=== PATIENT | female | born 1960 | race Caucasian/White ===

== ENCOUNTER 2020-03-27 17:26 | Emergency (ER) | payer BC ==
[~2020-03-27] VITALS: Ht 167.6 cm; Wt 43.0 kg
[2020-03-27] MEDS ORDERED: ketorolac trometh. 30mg/ml inj. IV ONE (17:45)
[2020-03-27] MEDS ORDERED: HYDR-3965 PO (18:19)
[2020-03-27 18:32] VITALS: BP 108/61
== END 2020-03-27 18:33 | disposition home or self-care (01) ==
LOC: ER 17:26
DX: S52.124A Nondisplaced fracture of head of right radius, initial encounter for closed fracture (principal); M79.631 Pain in right forearm; R42 Dizziness and giddiness; R11.0 Nausea; J44.9 Chronic obstructive pulmonary disease, unspecified; F17.200 Nicotine dependence, unspecified, uncomplicated; Z88.5 Allergy status to narcotic agent; Z79.899 Other long term (current) drug therapy; W18.39XA Other fall on same level, initial encounter; Y93.89 Activity, other specified; Y92.89 Other specified places as the place of occurrence of the external cause; Y99.8 Other external cause status
CPT/HCPCS: 73090; 73110; 96374; 99284; J1885

== ENCOUNTER 2021-06-07 02:16 | Inpatient (IN) | payer BC ==
[~2021-06-07] VITALS: Ht 165.1 cm; Wt 84.1 kg
[2021-06-07 03:07] LABS: EOSINOPHILS # (AUTO) 0.1 X10'3 (0-0.9); MEAN CORPUSCULAR HEMOGLOBIN 30.6 PG (27.0-31.0); MEAN PLATELET VOLUME 9.7 FL (7.4-10.4)
[2021-06-07 03:11] LABS: BASOPHILS # (AUTO) 0.1 X10'3 (0-0.2); BASOPHILS % (AUTO) 0.9 % (0-1); EOSINOPHILS % (AUTO) 1.3 % (0-6); HEMATOCRIT 42.9 % (35.0-45.0); HEMOGLOBIN 14.5 g/dl (12.0-16.0); LYMPHOCYTES # (AUTO) 1.9 X10'3 (1.1-4.8); LYMPHOCYTES % (AUTO) 22.3 % (21-51); MEAN CORPUSCULAR HGB CONC 33.7 g/dL (33.0-36.5); MEAN CORPUSCULAR VOLUME 90.7 FL (78-98); MONOCYTES # (AUTO) 1.3 X10'3 (0-0.9); MONOCYTES % (AUTO) 14.7 % (2-12); NEUTROPHILS # (AUTO) 5.2 X10'3 (1.8-7.7); NEUTROPHILS % (AUTO) 60.8 % (42-75); PLATELET COUNT 230 X10'3 (140-440); RED BLOOD COUNT 4.73 X10'6 (4.20-5.60); RED CELL DISTRIBUTION WIDTH 13.8 % (11.5-14.5); WHITE BLOOD COUNT 8.6 X10'3 (4.5-11.0)
[2021-06-07 03:26] LABS: ALBUMIN 3.2 G/DL (3.4-5.0); ANION GAP 9 (8-16); BLOOD UREA NITROGEN 19 MG/DL (7-18); BUN/CREATININE RATIO 22.9 (6.6-38.0); CALCIUM 8.6 MG/DL (8.5-10.1); CHLORIDE 104 MMOL/L (99-107); CREATININE 0.83 MG/DL (0.40-0.90); GLUCOSE 91 MG/DL (70-104); POTASSIUM 3.9 MMOL/L (3.5-5.1); SODIUM 141 MMOL/L (135-145); TOTAL CARBON DIOXIDE 27.9 MMOL/L (24-32); eGFR 70 ML/MIN
[2021-06-07] MEDS ORDERED: albuterol 2.5 MG/3 ML nebule NEB ONE (04:00)
[2021-06-07] MEDS ORDERED: dexamethasone sod phosphate 10mg/ml inj IV STA (04:23)
[2021-06-07] MEDS ORDERED: CefTRIAXone/D5W-Rocephin 1gm 50 ML IV ONE (06:30)
[2021-06-07] MEDS ORDERED: mag hydrox/Alum hydrox/simeth 30ml oral suspension PO PRN (08:00)
[2021-06-07] MEDS: docusate sod 100mg capsule PO SCH ×2 (08:00→20:00)
[2021-06-07] MEDS: enoxaparin 40mg/0.4ml syringe SUBCUT SCH (08:00)
[2021-06-07] MEDS ORDERED: ondansetron/PF 4mg/2ml inj IV PRN (08:00)
[2021-06-07] MEDS ORDERED: acetaminophen 325mg tablet PO PRN ×2 (08:00)
[2021-06-07] MEDS ORDERED: magnesium hydroxide 30ml (MOM) UD suspension PO PRN (08:00)
[2021-06-07] MEDS ORDERED: morphine 2 MG/ML inj. syringe IV PRN ×2 (08:00)
[2021-06-07] MEDS ORDERED: ipratropium/albuterol 3ml nebule NEB PRN (08:05)
[2021-06-07 08:51] LABS: ABG HCO3 26.3 mmol/L (22.0-26.0); ABG OXYGEN SATURATION 97.2 % (94-97); ABG PO2 (T) 91.1 mmHg (75.0-100.0); ALLEN'S TEST POSITIVE; FMetHb 0.1 % (0.0-1.5); FO2Hb 96.1 % (94-97); PATIENT TEMPERATURE 36.3; TOTAL HEMOGLOBIN 15.2 G/dl (12.0-16.0)
[2021-06-07] MEDS ORDERED: nicotine 21mg patch - 24 hr TD ONE (09:15)
[2021-06-07] MEDS ORDERED: ALBU18HF2 PO (09:44)
[2021-06-07] MEDS ORDERED: ALBU2.5V10 PO (09:44)
[2021-06-07] MEDS ORDERED: FLUT1BLS10 INH (09:44)
[2021-06-07] MEDS ORDERED: ipratropium/albuterol 3ml nebule ONE (12:20)
[2021-06-07] MEDS: methylPREDNISolone sod succ 125mg/2ml vial IV SCH ×2 (16:29→23:43)
--- NOTE | 2021-06-07 16:32 | NUR ---
Attempted to call for report from ER
--- NOTE | 2021-06-07 16:43 | NUR ---
Patient in room ED 1. I have received report from ADITI Alarcon RN and had the opportunity to ask questions and assume patient care.
[2021-06-07] MEDS ORDERED: ipratropium/albuterol 3ml nebule NEB SCH (17:00)
[2021-06-07 17:13] VITALS: BP 102/60
[2021-06-07] MEDS: ipratropium/albuterol 3ml nebule NEB PRN (17:19)
[2021-06-07 18:00] VITALS: BP 95/56
--- NOTE | 2021-06-07 18:20 | NUR ---
Patient in room MED 309. I have received report from Mary DAVE and had the opportunity to ask questions and assume patient care.
[2021-06-07] MEDS: ipratropium/albuterol 3ml nebule NEB SCH ×2 (20:11→23:55)
[2021-06-07 22:00] VITALS: BP 106/59
[2021-06-08 02:00] VITALS: BP 105/81
[2021-06-08] MEDS: ipratropium/albuterol 3ml nebule NEB SCH ×6 (03:07→23:14)
[2021-06-08 06:28] LABS: BASOPHILS % (AUTO) 0.1 % (0-1); EOSINOPHILS % (AUTO) 0 % (0-6); HEMATOCRIT 42.7 % (35.0-45.0); HEMOGLOBIN 14.5 g/dl (12.0-16.0); LYMPHOCYTES # (AUTO) 0.8 X10'3 (1.1-4.8); LYMPHOCYTES % (AUTO) 8.9 % (21-51); MEAN CORPUSCULAR HEMOGLOBIN 30.6 PG (27.0-31.0); MEAN CORPUSCULAR HGB CONC 33.9 g/dL (33.0-36.5); MEAN CORPUSCULAR VOLUME 90.2 FL (78-98); MONOCYTES # (AUTO) 0.2 X10'3 (0-0.9); MONOCYTES % (AUTO) 2.3 % (2-12); NEUTROPHILS # (AUTO) 7.9 X10'3 (1.8-7.7); NEUTROPHILS % (AUTO) 88.7 % (42-75); PLATELET COUNT 229 X10'3 (140-440); RED BLOOD COUNT 4.73 X10'6 (4.20-5.60); RED CELL DISTRIBUTION WIDTH 13.5 % (11.5-14.5); WHITE BLOOD COUNT 8.9 X10'3 (4.5-11.0)
--- NOTE | 2021-06-08 06:30 | NUR ---
Problems reprioritized. Patient report given, questions answered & plan of care reviewed with Otis DAVE.
--- NOTE | 2021-06-08 06:41 | NUR ---
patient complaining of shortness of breath, O2 sats 96% on 3L, paged RT for a breathing treatment.
[2021-06-08 06:49] LABS: ANION GAP 10 (8-16); BLOOD UREA NITROGEN 22 MG/DL (7-18); BUN/CREATININE RATIO 27.8 (6.6-38.0); CALCIUM 8.9 MG/DL (8.5-10.1); CHLORIDE 105 MMOL/L (99-107); CREATININE 0.79 MG/DL (0.40-0.90); GLUCOSE 138 MG/DL (70-104); POTASSIUM 4.3 MMOL/L (3.5-5.1); SODIUM 142 MMOL/L (135-145); TOTAL CARBON DIOXIDE 27.1 MMOL/L (24-32); eGFR 74 ML/MIN
[2021-06-08 07:00] VITALS: BP 118/62
[2021-06-08] MEDS: methylPREDNISolone sod succ 125mg/2ml vial IV SCH ×2 (07:42→16:07)
[2021-06-08] MEDS: docusate sod 100mg capsule PO SCH ×2 (07:42→20:39)
[2021-06-08] MEDS: enoxaparin 40mg/0.4ml syringe SUBCUT SCH (07:43)
[2021-06-08 11:00] VITALS: BP 119/83
[2021-06-08] MEDS ORDERED: guaiFENesin ER 600mg tablet PO ONE (11:30)
[2021-06-08 15:00] VITALS: BP 105/68
[2021-06-08 18:00] VITALS: BP 111/60
[2021-06-08] MEDS: guaiFENesin ER 600mg tablet PO SCH (20:39)
[2021-06-08 22:55] VITALS: BP 103/61
[2021-06-09] MEDS: methylPREDNISolone sod succ 125mg/2ml vial IV SCH ×3 (00:13→17:11)
[2021-06-09 02:00] VITALS: BP 113/69
[2021-06-09] MEDS: ipratropium/albuterol 3ml nebule NEB PRN (03:10)
[2021-06-09 05:51] LABS: BASOPHILS % (AUTO) 0.3 % (0-1); EOSINOPHILS % (AUTO) 0 % (0-6); HEMATOCRIT 45.2 % (35.0-45.0); HEMOGLOBIN 14.9 g/dl (12.0-16.0); LYMPHOCYTES # (AUTO) 0.7 X10'3 (1.1-4.8); MEAN CORPUSCULAR VOLUME 90.9 FL (78-98); MONOCYTES # (AUTO) 0.3 X10'3 (0-0.9); MONOCYTES % (AUTO) 2.5 % (2-12); NEUTROPHILS # (AUTO) 12.6 X10'3 (1.8-7.7); NEUTROPHILS % (AUTO) 92.2 % (42-75); PLATELET COUNT 241 X10'3 (140-440); RED BLOOD COUNT 4.97 X10'6 (4.20-5.60); WHITE BLOOD COUNT 13.7 X10'3 (4.5-11.0)
[2021-06-09 05:56] LABS: ANION GAP 6 (8-16); BLOOD UREA NITROGEN 23 MG/DL (7-18); BUN/CREATININE RATIO 27.7 (6.6-38.0); CHLORIDE 102 MMOL/L (99-107); CREATININE 0.83 MG/DL (0.40-0.90); GLUCOSE 151 MG/DL (70-104); POTASSIUM 4.2 MMOL/L (3.5-5.1); SODIUM 137 MMOL/L (135-145); eGFR 70 ML/MIN
--- NOTE | 2021-06-09 06:36 | NUR ---
Patient in room MED 309. I have received report from Sujey DAVE and had the opportunity to ask questions and assume patient care.
--- NOTE | 2021-06-09 06:59 | NUR ---
Paged RT MARY Palacios RN ext [phone]. RE: Merlyn Rodriguez. Patient is short of breath requesting for breathing treatment now. Thanks
[2021-06-09] MEDS: ipratropium/albuterol 3ml nebule NEB SCH ×4 (07:08→19:26)
[2021-06-09 07:11] VITALS: BP 111/55
[2021-06-09] MEDS: docusate sod 100mg capsule PO SCH ×2 (08:17→20:16)
[2021-06-09] MEDS: guaiFENesin ER 600mg tablet PO SCH ×2 (08:17→20:16)
[2021-06-09] MEDS: enoxaparin 40mg/0.4ml syringe SUBCUT SCH (08:18)
--- NOTE | 2021-06-09 08:45 | NUR ---
Patient reported to me that she did not feel confident about getting flu shot and pneumococcal vaccine today.
[2021-06-09] MEDS: nicotine 21mg patch - 24 hr TD SCH (10:10)
--- NOTE | 2021-06-09 10:42 | NUR ---
Paged Dr. Christopher PAGER ID: [phone] MESSAGE: MARY Palacios RN ext [phone]. RE: Michael,Andreina. Patient really wants to start Tessalon jayme she said Mucinex don't work for her and the cough triggering her anxiety
[2021-06-09] MEDS ORDERED: guaiFENesin/DM 10ml UD oral syrup PO PRN (10:45)
[2021-06-09] MEDS ORDERED: pneumococcal 23-VAL P-sac vacc 25 mcg/0.5ml vial IMVAC ONE (10:50)
[2021-06-09] MEDS ORDERED: FLU VACC QS2021-22(6MOS UP)/PF 60 MCG/0.5 ML SYRINGE IM ONE (10:55)
[2021-06-09 10:57] VITALS: BP 98/70
[2021-06-09] MEDS: azithromycin 250mg tablet PO SCH (11:09)
[2021-06-09 16:54] VITALS: BP 103/80
--- NOTE | 2021-06-09 17:38 | NUR ---
Paged Dr. Christopher PAGER ID: [phone] MESSAGE: MARY Palacios RN ext [phone]. Merlyn Rodriguez. Follow up page: Patient has been requesting Tessalon jayme for her cough.
[2021-06-09 18:00] VITALS: BP 108/72
--- NOTE | 2021-06-09 18:27 | NUR ---
Problems reprioritized. Patient report given, questions answered & plan of care reviewed with Prudence RN.
[2021-06-09] MEDS: benzonatate 100mg capsule PO PRN (20:16)
[2021-06-09 22:00] VITALS: BP 114/63
[2021-06-10] MEDS: methylPREDNISolone sod succ 125mg/2ml vial IV SCH ×2 (00:16→08:25)
[2021-06-10] MEDS: ipratropium/albuterol 3ml nebule NEB PRN ×2 (00:36→04:53)
[2021-06-10 03:00] VITALS: BP 108/72
[2021-06-10 06:09] LABS: BASOPHILS % (AUTO) 0.1 % (0-1); EOSINOPHILS % (AUTO) 0 % (0-6); HEMATOCRIT 42.7 % (35.0-45.0); HEMOGLOBIN 14.2 g/dl (12.0-16.0); LYMPHOCYTES # (AUTO) 0.7 X10'3 (1.1-4.8); LYMPHOCYTES % (AUTO) 5.8 % (21-51); MEAN CORPUSCULAR HEMOGLOBIN 30.1 PG (27.0-31.0); MEAN CORPUSCULAR HGB CONC 33.2 g/dL (33.0-36.5); MEAN CORPUSCULAR VOLUME 90.7 FL (78-98); MEAN PLATELET VOLUME 9.4 FL (7.4-10.4); MONOCYTES # (AUTO) 0.4 X10'3 (0-0.9); MONOCYTES % (AUTO) 3.1 % (2-12); NEUTROPHILS # (AUTO) 10.6 X10'3 (1.8-7.7); PLATELET COUNT 223 X10'3 (140-440); RED BLOOD COUNT 4.71 X10'6 (4.20-5.60); RED CELL DISTRIBUTION WIDTH 14.1 % (11.5-14.5); WHITE BLOOD COUNT 11.7 X10'3 (4.5-11.0)
--- NOTE | 2021-06-10 06:19 | NUR ---
Problems reprioritized. Patient report given, questions answered & plan of care reviewed with Siria DAVE.
[2021-06-10 06:30] VITALS: BP 111/57
[2021-06-10 06:40] LABS: ALBUMIN 2.9 G/DL (3.4-5.0); ANION GAP 8 (8-16); BLOOD UREA NITROGEN 23 MG/DL (7-18); CALCIUM 8.6 MG/DL (8.5-10.1); CHLORIDE 102 MMOL/L (99-107); GLUCOSE 183 MG/DL (70-104); SODIUM 136 MMOL/L (135-145); TOTAL CARBON DIOXIDE 26.4 MMOL/L (24-32); eGFR 56 ML/MIN
[2021-06-10] MEDS: azithromycin 250mg tablet PO SCH (08:25)
[2021-06-10] MEDS: docusate sod 100mg capsule PO SCH (08:25)
[2021-06-10] MEDS: guaiFENesin ER 600mg tablet PO SCH (08:25)
[2021-06-10] MEDS: benzonatate 100mg capsule PO PRN (08:25)
[2021-06-10] MEDS: enoxaparin 40mg/0.4ml syringe SUBCUT SCH (08:26)
[2021-06-10] MEDS: nicotine 21mg patch - 24 hr TD SCH (08:27)
[2021-06-10] MEDS ORDERED: AZI25OT PO (08:36)
[2021-06-10] MEDS ORDERED: PRED10TA23 PO (08:36)
[2021-06-10] MEDS: ipratropium/albuterol 3ml nebule NEB SCH ×2 (08:38→12:09)
--- NOTE | 2021-06-10 08:42 | NUR ---
O2 Sat at rest on room air:__78_% If below 89%: Recovery O2 Sat at rest on _2.5__LPM:__91_%:___% via n/c (mask/nasal cannula, etc..) No further documentation is necessary. If O2 Sat did not drop below 89% on room air,ambulate patient on room air. O2 Sat while ambulating on room air:___% Recovery O2 Sat while ambulating on ___LPM:___% No further documentation is necessary. If patient does not drop below 89% while ambulating, he/she does not qualify for home O2.
--- NOTE | 2021-06-10 08:45 | NUR ---
Paged CM for home 02
--- NOTE | 2021-06-10 10:29 | NUR ---
PAGER ID: [phone] MESSAGE: Merlyn Pena Requesting tesslon pearls as a discharge medication please. thank you Siria [phone]
[2021-06-10] MEDS ORDERED: BENZ-38 PO (10:33)
--- NOTE | 2021-06-10 13:10 | NUR ---
Pt. still waiting on delivery. Reviewed discharge paperwork and medication with pt. Disscussed possible ASe of new medications with pt. She is aware she needs to f/u with her PCP. A return to work on Sunday notice given to pt. per pt. request and MD request. Pt. given verbal and written education on COPD and home 02 use. She was given many opportunities to ask question. Discharge paperwork signed by pt. is at bedside.
--- NOTE | 2021-06-10 15:11 | NUR ---
DISCHARGED. IV DC'd, cannula intact, pressure bandage applied.
[2021-06-10] MEDS ORDERED: lactobacillus rhamnosus 10,000 MMU CELLS/CAPSULE PO SCH (20:00)
[2021-06-11] MEDS ORDERED: PRED10TA PO (10:47)
[2021-06-11] MEDS ORDERED: BENZ-49 PO (10:47)
== END 2021-06-10 14:32 | disposition home or self-care (01) | DRG 193 ==
LOC: ER 02:16 → ED HOLD 08:00 → MED 3N 17:05
PROVIDERS: ADMIT Internal Medicine; ATTEND Internal Medicine
PROC: 5A0935A Assistance with Respiratory Ventilation, Less than 24 Consecutive Hours, High Flow/Velocity Cannula (ICD-10-PCS; principal; 2021-06-07)
DX: J18.9 Pneumonia, unspecified organism (principal); J96.01 Acute respiratory failure with hypoxia; J44.0 Chronic obstructive pulmonary disease with (acute) lower respiratory infection; J44.1 Chronic obstructive pulmonary disease with (acute) exacerbation; J20.9 Acute bronchitis, unspecified; Z20.822 Contact with and (suspected) exposure to COVID-19; F17.210 Nicotine dependence, cigarettes, uncomplicated; Z88.5 Allergy status to narcotic agent; Z71.6 Tobacco abuse counseling
CPT/HCPCS: 36415; 36600; 71045; 80048; 82803; 83880; 84484; 85018; 85025; 87081; 87635; 90732; 93005; 94640; 94760; 99291; G0378; J0696; J1100; J1650; J2930

== ENCOUNTER 2021-06-10 18:26 | Emergency (ER) | payer BC ==
[~2021-06-10] VITALS: Ht 165.1 cm; Wt 81.8 kg
[~2021-06-10 18:26] MED LIST: ALBU18HF2 PO; ALBU2.5V10 PO; AZI25OT PO; BENZ-38 PO; FLUT1BLS10 INH; PRED10TA23 PO
[2021-06-10] MEDS ORDERED: ipratropium/albuterol 3ml nebule NEB ONE (18:30)
[2021-06-10] MEDS ORDERED: magnesium 2GM in 50ml NS 50 ML IV ONE (18:30)
[2021-06-10] MEDS ORDERED: LORazepam 2 mg/ml vial IV ONE (18:30)
[2021-06-10 18:39] VITALS: BP 115/88
[2021-06-10 18:48] LABS: BASOPHILS % (AUTO) 0.3 % (0-1); EOSINOPHILS % (AUTO) 0 % (0-6); HEMATOCRIT 45.4 % (35.0-45.0); HEMOGLOBIN 15.1 g/dl (12.0-16.0); LYMPHOCYTES # (AUTO) 0.9 X10'3 (1.1-4.8); LYMPHOCYTES % (AUTO) 6.7 % (21-51); MEAN CORPUSCULAR HEMOGLOBIN 30.1 PG (27.0-31.0); MEAN CORPUSCULAR HGB CONC 33.3 g/dL (33.0-36.5); MEAN CORPUSCULAR VOLUME 90.3 FL (78-98); MEAN PLATELET VOLUME 9.4 FL (7.4-10.4); MONOCYTES # (AUTO) 1.2 X10'3 (0-0.9); MONOCYTES % (AUTO) 8.6 % (2-12); NEUTROPHILS # (AUTO) 11.9 X10'3 (1.8-7.7); NEUTROPHILS % (AUTO) 84.4 % (42-75); PLATELET COUNT 243 X10'3 (140-440); RED BLOOD COUNT 5.03 X10'6 (4.20-5.60); RED CELL DISTRIBUTION WIDTH 13.7 % (11.5-14.5); WHITE BLOOD COUNT 14.1 X10'3 (4.5-11.0)
[2021-06-10 19:02] LABS: ALANINE AMINOTRANSFERASE 30 U/L (12-78); ALBUMIN 3.1 G/DL (3.4-5.0); ALBUMIN/GLOBULIN RATIO 0.8 (1.1-1.5); ALKALINE PHOSPHATASE 74 IU/L (46-116); ANION GAP 7 (8-16); ASPARTATE AMINO TRANSFERASE 16 U/L (10-37); BILIRUBIN,TOTAL 0.3 MG/DL (0.1-1.0); BLOOD UREA NITROGEN 25 MG/DL (7-18); BUN/CREATININE RATIO 25.5 (6.6-38.0); CALCIUM 8.5 MG/DL (8.5-10.1); CHLORIDE 103 MMOL/L (99-107); CREATININE 0.98 MG/DL (0.40-0.90); GLUCOSE 105 MG/DL (70-104); POTASSIUM 3.9 MMOL/L (3.5-5.1); SODIUM 142 MMOL/L (135-145); TOTAL CARBON DIOXIDE 32.5 MMOL/L (24-32); TOTAL PROTEIN 7.1 G/DL (6.4-8.2); eGFR 58 ML/MIN
[2021-06-10] MEDS ORDERED: albuterol 2.5 MG/3 ML nebule NEB ONE (19:20)
[2021-06-10 21:16] LABS: NEUTROPHILS % (MANUAL) 82.2 % (42-75); PLATELET ESTIMATE NORMAL; TOTAL CELLS COUNTED 101
[2021-06-11] MEDS ORDERED: PRED10TA PO (10:47)
[2021-06-11] MEDS ORDERED: BENZ-49 PO (10:47)
== END 2021-06-10 21:15 | disposition home or self-care (01) ==
LOC: ER 18:26
DX: J44.1 Chronic obstructive pulmonary disease with (acute) exacerbation (principal); R06.02 Shortness of breath; R00.0 Tachycardia, unspecified; F17.200 Nicotine dependence, unspecified, uncomplicated; Z88.5 Allergy status to narcotic agent; Z79.2 Long term (current) use of antibiotics; Z79.899 Other long term (current) drug therapy
CPT/HCPCS: 36415; 71045; 80053; 85007; 85025; 93005; 94640; 96365; 96375; 99285; J2060; J3475; 94760

== ENCOUNTER 2021-06-10 23:13 | Inpatient (IN) | payer BC ==
[~2021-06-10] VITALS: Ht 165.1 cm; Wt 81.8 kg
[~2021-06-10 23:13] MED LIST changes: +temazepam 15mg capsule PO PRN
[2021-06-10] MEDS ORDERED: methylPREDNISolone sod succ 125mg/2ml vial IV ONE (23:20)
[2021-06-10] MEDS ORDERED: albuterol 2.5 MG/3 ML nebule CONTNEB PRN (23:20)
[2021-06-10] MEDS ORDERED: iohexol 350MG/ML 100ml bottle IV ONE (23:23)
[2021-06-10] MEDS ORDERED: potassium Cl 20 mEq SR tablet PO PRN ×2 (23:30)
[2021-06-10] MEDS ORDERED: magnesium hydroxide 30ml (MOM) UD suspension PO PRN (23:30)
[2021-06-10] MEDS ORDERED: potassium CL 10mEq/100ml bag 100 ML IV PRN (23:30)
[2021-06-10] MEDS ORDERED: mag hydrox/Alum hydrox/simeth 30ml oral suspension PO PRN (23:30)
[2021-06-10] MEDS ORDERED: magnesium 2GM in 50ml NS 50 ML IV PRN (23:30)
[2021-06-10] MEDS ORDERED: magnesium Cl slow-release 64mg tablet PO PRN (23:30)
[2021-06-10] MEDS ORDERED: ondansetron/PF 4mg/2ml inj IV PRN (23:30)
[2021-06-10] MEDS ORDERED: magnesium 4gm in 100ml NS 100 ML IV PRN (23:30)
[2021-06-10] MEDS ORDERED: acetaminophen 325mg tablet PO PRN ×2 (23:30)
[2021-06-11 00:22] LABS: ABG BASE EXCESS 3.8 mmol/L (-2.0-2.0); ABG OXYGEN SATURATION 99.1 % (94-97); ALLEN'S TEST POSITIVE; FCOHb 0.6 % (0.0-3.9); FLOW 15 L/min; FMetHb 0.2 % (0.0-1.5); FO2Hb 98.3 % (94-97); PATIENT TEMPERATURE 38.3; TOTAL HEMOGLOBIN 15.5 G/dl (12.0-16.0)
[2021-06-11] MEDS: heparin, porcine 5000 units/ml vial SQ SCH ×3 (01:55→16:00)
[2021-06-11] MEDS: albuterol 2.5 MG/3 ML nebule NEB SCH ×3 (03:44→07:19)
[2021-06-11 05:43] LABS: BASOPHILS % (AUTO) 0.2 % (0-1); EOSINOPHILS % (AUTO) 0.1 % (0-6); HEMATOCRIT 44.3 % (35.0-45.0); HEMOGLOBIN 14.9 g/dl (12.0-16.0); LYMPHOCYTES # (AUTO) 0.6 X10'3 (1.1-4.8); LYMPHOCYTES % (AUTO) 4.9 % (21-51); MEAN CORPUSCULAR HEMOGLOBIN 30.3 PG (27.0-31.0); MEAN CORPUSCULAR HGB CONC 33.6 g/dL (33.0-36.5); MEAN CORPUSCULAR VOLUME 90.2 FL (78-98); MEAN PLATELET VOLUME 9.7 FL (7.4-10.4); MONOCYTES # (AUTO) 0.9 X10'3 (0-0.9); MONOCYTES % (AUTO) 7.1 % (2-12); NEUTROPHILS # (AUTO) 11.3 X10'3 (1.8-7.7); NEUTROPHILS % (AUTO) 87.7 % (42-75); PLATELET COUNT 222 X10'3 (140-440); RED BLOOD COUNT 4.91 X10'6 (4.20-5.60); RED CELL DISTRIBUTION WIDTH 13.9 % (11.5-14.5); WHITE BLOOD COUNT 12.8 X10'3 (4.5-11.0)
[2021-06-11 05:52] LABS: ALANINE AMINOTRANSFERASE 28 U/L (12-78); ALBUMIN 3.1 G/DL (3.4-5.0); ALBUMIN/GLOBULIN RATIO 0.9 (1.1-1.5); ALKALINE PHOSPHATASE 70 IU/L (46-116); ANION GAP 4 (8-16); ASPARTATE AMINO TRANSFERASE 10 U/L (10-37); BILIRUBIN,TOTAL 0.3 MG/DL (0.1-1.0); BLOOD UREA NITROGEN 25 MG/DL (7-18); BUN/CREATININE RATIO 24.5 (6.6-38.0); CALCIUM 8.6 MG/DL (8.5-10.1); CHLORIDE 102 MMOL/L (99-107); CREATININE 1.02 MG/DL (0.40-0.90); GLUCOSE 151 MG/DL (70-104); POTASSIUM 3.7 MMOL/L (3.5-5.1); SODIUM 137 MMOL/L (135-145); TOTAL CARBON DIOXIDE 31.4 MMOL/L (24-32); TOTAL PROTEIN 6.7 G/DL (6.4-8.2); eGFR 55 ML/MIN
[2021-06-11] MEDS ORDERED: methylPREDNISolone sod succ 125mg/2ml vial IV SCH (08:00)
[2021-06-11] MEDS: K and/or MAG REPLACEMENT MC SCH ×2 (08:00→20:00)
[2021-06-11] MEDS: CefTRIAXone 2gm/D5W 50ml BAG 50 ML IV SCH (08:34)
[2021-06-11] MEDS ORDERED: PRED10TA PO (10:47)
[2021-06-11] MEDS ORDERED: BENZ-49 PO (10:47)
[2021-06-11] MEDS ORDERED: albuterol 2.5 MG/3 ML nebule NEB SCH (11:00)
[2021-06-11] MEDS ORDERED: azithromycin/NS 500mg/250ml 250 ML IV ONE (12:25)
[2021-06-11] MEDS: methylPREDNISolone sod succ 125mg/2ml vial IV SCH ×2 (13:50→21:44)
[2021-06-11] MEDS: benzonatate 100mg capsule PO SCH ×2 (13:50→21:43)
[2021-06-11] MEDS: ipratropium/albuterol 3ml nebule NEB SCH ×3 (14:13→23:06)
[2021-06-11] MEDS ORDERED: FLUTICASONE PROPION INH SCH (20:00)
[2021-06-11] MEDS ORDERED: SALMETEROL INH SCH (20:00)
[2021-06-11] MEDS: lactobacillus rhamnosus 10,000 MMU CELLS/CAPSULE PO SCH (21:44)
[2021-06-11 23:00] VITALS: BP 121/61
[2021-06-11] MEDS: budesonide 0.5mg/2ml UD nebule IH SCH (23:04)
[2021-06-12 02:00] VITALS: BP 125/65
--- NOTE | 2021-06-12 03:19 | NUR ---
received notice of positive blood cultures from lab. notified within 30 minutes of notice and responded. patient on antibiotics presently and no changes were made
[2021-06-12] MEDS: methylPREDNISolone sod succ 125mg/2ml vial IV SCH ×4 (03:48→20:13)
[2021-06-12] MEDS: heparin, porcine 5000 units/ml vial SQ SCH ×4 (03:49→23:06)
[2021-06-12] MEDS: ipratropium/albuterol 3ml nebule NEB PRN (03:57)
[2021-06-12 06:00] VITALS: BP 108/63
--- NOTE | 2021-06-12 06:13 | NUR ---
Problems reprioritized. Patient report given, questions answered & plan of care reviewed with Ania DAVE.
--- NOTE | 2021-06-12 06:46 | NUR ---
Patient in room PCU 3014. I have received report from Tato DAVE and had the opportunity to ask questions and assume patient care.
[2021-06-12] MEDS: ipratropium/albuterol 3ml nebule NEB SCH ×5 (07:07→23:38)
[2021-06-12] MEDS: budesonide 0.5mg/2ml UD nebule IH SCH ×2 (07:07→19:46)
[2021-06-12 07:36] LABS: BASOPHILS % (AUTO) 0.1 % (0-1); EOSINOPHILS % (AUTO) 0 % (0-6); HEMATOCRIT 42.4 % (35.0-45.0); HEMOGLOBIN 14.1 g/dl (12.0-16.0); LYMPHOCYTES # (AUTO) 0.7 X10'3 (1.1-4.8); LYMPHOCYTES % (AUTO) 6.2 % (21-51); MEAN CORPUSCULAR HEMOGLOBIN 30.3 PG (27.0-31.0); MEAN CORPUSCULAR HGB CONC 33.3 g/dL (33.0-36.5); MEAN PLATELET VOLUME 9.2 FL (7.4-10.4); MONOCYTES # (AUTO) 0.6 X10'3 (0-0.9); MONOCYTES % (AUTO) 4.8 % (2-12); NEUTROPHILS # (AUTO) 10.1 X10'3 (1.8-7.7); NEUTROPHILS % (AUTO) 88.9 % (42-75); PLATELET COUNT 214 X10'3 (140-440); RED BLOOD COUNT 4.66 X10'6 (4.20-5.60); RED CELL DISTRIBUTION WIDTH 13.8 % (11.5-14.5); WHITE BLOOD COUNT 11.4 X10'3 (4.5-11.0)
[2021-06-12 07:49] LABS: ALANINE AMINOTRANSFERASE 33 U/L (12-78); ALBUMIN 2.8 G/DL (3.4-5.0); ALBUMIN/GLOBULIN RATIO 0.8 (1.1-1.5); ALKALINE PHOSPHATASE 62 IU/L (46-116); ANION GAP 6 (8-16); ASPARTATE AMINO TRANSFERASE 14 U/L (10-37); BILIRUBIN,TOTAL 0.3 MG/DL (0.1-1.0); BLOOD UREA NITROGEN 24 MG/DL (7-18); BUN/CREATININE RATIO 28.2 (6.6-38.0); CALCIUM 8.5 MG/DL (8.5-10.1); CHLORIDE 102 MMOL/L (99-107); CREATININE 0.85 MG/DL (0.40-0.90); GLUCOSE 166 MG/DL (70-104); POTASSIUM 4.3 MMOL/L (3.5-5.1); SODIUM 139 MMOL/L (135-145); TOTAL CARBON DIOXIDE 31.3 MMOL/L (24-32); TOTAL PROTEIN 6.3 G/DL (6.4-8.2); eGFR 68 ML/MIN
[2021-06-12] MEDS ORDERED: azithromycin/NS 500mg/250ml 250 ML IV SCH (08:00)
[2021-06-12] MEDS ORDERED: ampicillin inj 1 GM in normal saline 100ml IV soln 100 ML IV SCH (08:00)
[2021-06-12] MEDS: K and/or MAG REPLACEMENT MC SCH ×2 (08:00→19:59)
[2021-06-12] MEDS: benzonatate 100mg capsule PO SCH ×3 (08:13→20:14)
[2021-06-12] MEDS: lactobacillus rhamnosus 10,000 MMU CELLS/CAPSULE PO SCH ×2 (08:13→20:14)
[2021-06-12 09:23] LABS: TOTAL CELLS COUNTED 100
[2021-06-12 09:24] LABS: ELLIPTOCYTES FEW; PLATELET ESTIMATE NORMAL; STOMATOCYTES FEW; TEAR DROP CELLS FEW
[2021-06-12] MEDS: CefTRIAXone 2gm/D5W 50ml BAG 50 ML IV SCH (10:00)
--- NOTE | 2021-06-12 10:56 | NUR ---
insulin refusal Pt. refused insulin due to not eating any breakfast; Will recheck lunch Addendum: 06/12/21 at 1057 by Ania Horton RN wrong pt. entered.
[2021-06-12 11:00] VITALS: BP 111/62
[2021-06-12 15:00] VITALS: BP 104/62
[2021-06-12] MEDS: vancomycin/NS 1 GM ADD-VANTAGE 250 ML IV SCH (15:15)
[2021-06-12 18:00] VITALS: BP 100/65
--- NOTE | 2021-06-12 18:23 | NUR ---
Problems reprioritized. Patient report given to Leticia DAVE, questions answered & plan of care reviewed with Leticia DAVE.Pt. safe and stable at time of change of shift.
--- NOTE | 2021-06-12 19:05 | NUR ---
Patient in room PCU 3014. I have received report from Ania and had the opportunity to ask questions and assume patient care.
[2021-06-12 22:00] VITALS: BP 102/64
[2021-06-13] MEDS: methylPREDNISolone sod succ 125mg/2ml vial IV SCH ×5 (01:14→20:19)
[2021-06-13] MEDS: vancomycin/NS 1 GM ADD-VANTAGE 250 ML IV SCH ×3 (01:14→14:38)
[2021-06-13 02:00] VITALS: BP 103/65
[2021-06-13] MEDS: ipratropium/albuterol 3ml nebule NEB PRN (03:41)
--- NOTE | 2021-06-13 05:29 | NUR ---
Frequently rounded on pt. In no apparent distress or condition change throughout the night. She got up a few times to use the restroom.
[2021-06-13 06:00] VITALS: BP 114/70
--- NOTE | 2021-06-13 06:07 | NUR ---
Problems reprioritized. Patient report given, questions answered & plan of care reviewed with Ania DAVE.
[2021-06-13 06:36] LABS: BASOPHILS % (AUTO) 0.2 % (0-1); EOSINOPHILS % (AUTO) 0 % (0-6); HEMATOCRIT 43.5 % (35.0-45.0); HEMOGLOBIN 14.5 g/dl (12.0-16.0); LYMPHOCYTES # (AUTO) 0.7 X10'3 (1.1-4.8); LYMPHOCYTES % (AUTO) 6.6 % (21-51); MEAN CORPUSCULAR HEMOGLOBIN 30.8 PG (27.0-31.0); MEAN CORPUSCULAR HGB CONC 33.4 g/dL (33.0-36.5); MEAN CORPUSCULAR VOLUME 92.2 FL (78-98); MEAN PLATELET VOLUME 9.9 FL (7.4-10.4); MONOCYTES # (AUTO) 0.5 X10'3 (0-0.9); MONOCYTES % (AUTO) 4.3 % (2-12); NEUTROPHILS # (AUTO) 9.6 X10'3 (1.8-7.7); NEUTROPHILS % (AUTO) 88.9 % (42-75); PLATELET COUNT 190 X10'3 (140-440); RED BLOOD COUNT 4.72 X10'6 (4.20-5.60); RED CELL DISTRIBUTION WIDTH 13.9 % (11.5-14.5); WHITE BLOOD COUNT 10.9 X10'3 (4.5-11.0)
[2021-06-13 06:56] LABS: ALANINE AMINOTRANSFERASE 38 U/L (12-78); ALBUMIN 2.8 G/DL (3.4-5.0); ALBUMIN/GLOBULIN RATIO 0.8 (1.1-1.5); ALKALINE PHOSPHATASE 60 IU/L (46-116); ANION GAP 6 (8-16); ASPARTATE AMINO TRANSFERASE 14 U/L (10-37); BILIRUBIN,TOTAL 0.4 MG/DL (0.1-1.0); BLOOD UREA NITROGEN 23 MG/DL (7-18); BUN/CREATININE RATIO 28.4 (6.6-38.0); CALCIUM 8.3 MG/DL (8.5-10.1); CHLORIDE 102 MMOL/L (99-107); CREATININE 0.81 MG/DL (0.40-0.90); GLUCOSE 146 MG/DL (70-104); SODIUM 138 MMOL/L (135-145); TOTAL CARBON DIOXIDE 30.4 MMOL/L (24-32); TOTAL PROTEIN 6.2 G/DL (6.4-8.2); eGFR 72 ML/MIN
[2021-06-13] MEDS: budesonide 0.5mg/2ml UD nebule IH SCH ×2 (07:28→19:59)
[2021-06-13] MEDS: ipratropium/albuterol 3ml nebule NEB SCH ×5 (07:29→23:57)
[2021-06-13] MEDS: lactobacillus rhamnosus 10,000 MMU CELLS/CAPSULE PO SCH ×2 (07:29→20:20)
[2021-06-13] MEDS: benzonatate 100mg capsule PO SCH ×3 (07:29→20:20)
[2021-06-13] MEDS: heparin, porcine 5000 units/ml vial SQ SCH ×3 (07:29→23:25)
[2021-06-13] MEDS: CefTRIAXone 2gm/D5W 50ml BAG 50 ML IV SCH (07:29)
[2021-06-13] MEDS: K and/or MAG REPLACEMENT MC SCH ×2 (08:00→20:00)
[2021-06-13 11:00] VITALS: BP 111/68
--- NOTE | 2021-06-13 11:54 | NUR ---
Verbal order to give 200mg oral labetolol Addendum: 06/13/21 at 1159 by Ania Horton RN Entered on wrong patient.
[2021-06-13] MEDS ORDERED: labetalol 100mg tablet PO ONE (11:55)
[2021-06-13 15:25] VITALS: BP 111/72
[2021-06-13 18:00] VITALS: BP 108/62
--- NOTE | 2021-06-13 18:07 | NUR ---
Problems reprioritized. Patient report given Leticia DAVE, questions answered & plan of care reviewed with Leticia DAVE. Pt. safe and stable at time of change of shift.
--- NOTE | 2021-06-13 18:31 | NUR ---
Patient in room PCU 3014. I have received report from Ania DAVE and had the opportunity to ask questions and assume patient care.
[2021-06-13 22:00] VITALS: BP 125/74
--- NOTE | 2021-06-13 23:46 | NUR ---
Paged respiratory about humidifer leaking, placed her on an O2 tank for now. Re: Merlyn Rodriguez [id number]. The humidifier container connected to her O2 is leaking. Do you guys fix it, or us?
[2021-06-14] MEDS: methylPREDNISolone sod succ 125mg/2ml vial IV SCH ×3 (01:01→13:34)
[2021-06-14] MEDS ORDERED: VANCOMYCIN LEVEL IV ONE (01:30)
[2021-06-14 02:00] VITALS: BP 109/64
[2021-06-14 02:00] LABS: ALANINE AMINOTRANSFERASE 37 U/L (12-78); ALBUMIN 2.6 G/DL (3.4-5.0); ALBUMIN/GLOBULIN RATIO 0.8 (1.1-1.5); ALKALINE PHOSPHATASE 59 IU/L (46-116); ANION GAP 5 (8-16); ASPARTATE AMINO TRANSFERASE 11 U/L (10-37); BILIRUBIN,TOTAL 0.3 MG/DL (0.1-1.0); BLOOD UREA NITROGEN 29 MG/DL (7-18); BUN/CREATININE RATIO 31.2 (6.6-38.0); CALCIUM 8.5 MG/DL (8.5-10.1); CHLORIDE 102 MMOL/L (99-107); CREATININE 0.93 MG/DL (0.40-0.90); GLUCOSE 175 MG/DL (70-104); POTASSIUM 4.2 MMOL/L (3.5-5.1); SODIUM 137 MMOL/L (135-145); TOTAL CARBON DIOXIDE 30.3 MMOL/L (24-32); TOTAL PROTEIN 5.8 G/DL (6.4-8.2); VANCOMYCIN,TROUGH 8.5 UG/ML (6.0-14.0); eGFR 61 ML/MIN
--- NOTE | 2021-06-14 03:48 | NUR ---
Pt back on wall O2, RT came by to fix.
[2021-06-14] MEDS: ipratropium/albuterol 3ml nebule NEB SCH ×3 (03:59→11:56)
--- NOTE | 2021-06-14 04:22 | NUR ---
Frequently rounded on pt. In no apparent distress or condition change throughout the night. She got up a few times to use the restroom.
[2021-06-14 06:00] VITALS: BP 118/71
--- NOTE | 2021-06-14 06:41 | NUR ---
Problems reprioritized. Patient report given, questions answered & plan of care reviewed with Robbi DAVE.
[2021-06-14 07:08] LABS: BASOPHILS % (AUTO) 0.2 % (0-1); EOSINOPHILS % (AUTO) 0 % (0-6); HEMATOCRIT 42.8 % (35.0-45.0); HEMOGLOBIN 14.1 g/dl (12.0-16.0); LYMPHOCYTES # (AUTO) 0.5 X10'3 (1.1-4.8); LYMPHOCYTES % (AUTO) 4.7 % (21-51); MEAN CORPUSCULAR HEMOGLOBIN 29.8 PG (27.0-31.0); MEAN CORPUSCULAR HGB CONC 32.8 g/dL (33.0-36.5); MEAN CORPUSCULAR VOLUME 90.8 FL (78-98); MEAN PLATELET VOLUME 9.7 FL (7.4-10.4); MONOCYTES # (AUTO) 0.4 X10'3 (0-0.9); MONOCYTES % (AUTO) 3.9 % (2-12); NEUTROPHILS # (AUTO) 10.3 X10'3 (1.8-7.7); NEUTROPHILS % (AUTO) 91.2 % (42-75); PLATELET COUNT 212 X10'3 (140-440); RED BLOOD COUNT 4.72 X10'6 (4.20-5.60); RED CELL DISTRIBUTION WIDTH 13.6 % (11.5-14.5); WHITE BLOOD COUNT 11.3 X10'3 (4.5-11.0)
[2021-06-14] MEDS: K and/or MAG REPLACEMENT MC SCH (08:00)
[2021-06-14] MEDS: benzonatate 100mg capsule PO SCH ×2 (08:23→13:34)
[2021-06-14] MEDS: heparin, porcine 5000 units/ml vial SQ SCH (08:23)
[2021-06-14] MEDS: lactobacillus rhamnosus 10,000 MMU CELLS/CAPSULE PO SCH (08:23)
[2021-06-14] MEDS: CefTRIAXone 2gm/D5W 50ml BAG 50 ML IV SCH (08:23)
[2021-06-14] MEDS: budesonide 0.5mg/2ml UD nebule IH SCH (08:26)
[2021-06-14 12:53] LABS: PLATELET ESTIMATE NORMAL; TOTAL CELLS COUNTED 100
[2021-06-14] MEDS ORDERED: LORazepam 1 MG tablet PO ONE (13:05)
== END 2021-06-14 16:05 | disposition home or self-care (01) | DRG 189 ==
LOC: ER 23:14 → ED HOLD 23:35 → PCU 3S 06-11 23:06
PROVIDERS: ADMIT Internal Medicine; ATTEND Family Medicine
PROC: B32T1ZZ Computerized Tomography (CT Scan) of Left Pulmonary Artery using Low Osmolar Contrast (ICD-10-PCS; principal; 2021-06-10)
PROC: B3201ZZ Computerized Tomography (CT Scan) of Thoracic Aorta using Low Osmolar Contrast (ICD-10-PCS; 2021-06-10)
PROC: B32S1ZZ Computerized Tomography (CT Scan) of Right Pulmonary Artery using Low Osmolar Contrast (ICD-10-PCS; 2021-06-10)
DX: J96.02 Acute respiratory failure with hypercapnia (principal); J44.1 Chronic obstructive pulmonary disease with (acute) exacerbation; N17.9 Acute kidney failure, unspecified; F17.210 Nicotine dependence, cigarettes, uncomplicated; J96.01 Acute respiratory failure with hypoxia; Z79.899 Other long term (current) drug therapy; Z88.5 Allergy status to narcotic agent; Z71.6 Tobacco abuse counseling
CPT/HCPCS: 36415; 36600; 71275; 80053; 80202; 82803; 83605; 85007; 85018; 85025; 87040; 87081; 87186; 94640; 94760; 99285; A7015; G0378; J0290; J0456; J0696; J1644; J2930; J3370; J3490; Q9967

== ENCOUNTER 2021-06-24 17:52 | Inpatient (IN) | payer BC ==
[~2021-06-24] VITALS: Ht 165.1 cm; Wt 84.1 kg
[~2021-06-24 17:52] MED LIST changes: -ALBU2.5V10 PO; -AZI25OT PO; -BENZ-38 PO; +BENZ-49 PO; +PRED10TA PO; -PRED10TA23 PO; -temazepam 15mg capsule PO PRN
[2021-06-24] MEDS ORDERED: ipratropium/albuterol 3ml nebule NEB ONE (18:30)
[2021-06-24] MEDS ORDERED: normal saline 1000ML IV soln IVB ONE (18:30)
[2021-06-24] MEDS ORDERED: methylPREDNISolone sod succ 125mg/2ml vial IV ONE (18:30)
[2021-06-24] MEDS ORDERED: magnesium 2GM in 50ml NS 50 ML IV ONE (18:30)
[2021-06-24 19:09] LABS: BASOPHILS % (AUTO) 0.5 % (0-1); EOSINOPHILS % (AUTO) 0.2 % (0-6); HEMATOCRIT 44.8 % (35.0-45.0); HEMOGLOBIN 15.2 g/dl (12.0-16.0); LYMPHOCYTES # (AUTO) 0.9 X10'3 (1.1-4.8); LYMPHOCYTES % (AUTO) 10.3 % (21-51); MEAN CORPUSCULAR HEMOGLOBIN 30.4 PG (27.0-31.0); MEAN CORPUSCULAR HGB CONC 33.9 g/dL (33.0-36.5); MEAN CORPUSCULAR VOLUME 89.5 FL (78-98); MEAN PLATELET VOLUME 9.2 FL (7.4-10.4); MONOCYTES % (AUTO) 11.2 % (2-12); NEUTROPHILS # (AUTO) 7.2 X10'3 (1.8-7.7); NEUTROPHILS % (AUTO) 77.8 % (42-75); PLATELET COUNT 178 X10'3 (140-440); RED CELL DISTRIBUTION WIDTH 14.2 % (11.5-14.5); WHITE BLOOD COUNT 9.2 X10'3 (4.5-11.0)
[2021-06-24 19:42] LABS: ALANINE AMINOTRANSFERASE 30 U/L (12-78); ALBUMIN/GLOBULIN RATIO 0.8 (1.1-1.5); ALKALINE PHOSPHATASE 73 IU/L (46-116); ANION GAP 11 (8-16); ASPARTATE AMINO TRANSFERASE 12 U/L (10-37); BILIRUBIN,TOTAL 0.4 MG/DL (0.1-1.0); BLOOD UREA NITROGEN 15 MG/DL (7-18); BUN/CREATININE RATIO 18.5 (6.6-38.0); CALCIUM 8.5 MG/DL (8.5-10.1); CHLORIDE 104 MMOL/L (99-107); CREATININE 0.81 MG/DL (0.40-0.90); GLUCOSE 86 MG/DL (70-104); POTASSIUM 3.6 MMOL/L (3.5-5.1); SODIUM 142 MMOL/L (135-145); TOTAL CARBON DIOXIDE 27.4 MMOL/L (24-32); TOTAL PROTEIN 6.7 G/DL (6.4-8.2); eGFR 72 ML/MIN
[2021-06-24] MEDS ORDERED: temazepam 15mg capsule PO PRN (21:00)
[2021-06-24] MEDS ORDERED: diphenhydrAMINE 25mg capsule PO PRN (23:50)
[2021-06-24] MEDS ORDERED: HYDROcodone/acetaminophen 5mg/325mg tablet PO PRN (23:50)
[2021-06-24] MEDS: normal saline 1000ml 1,000 ML IV SCH (23:50)
[2021-06-24] MEDS ORDERED: acetaminophen 325mg tablet PO PRN ×2 (23:50)
[2021-06-24] MEDS ORDERED: bisacodyl 10mg suppository rectal RC PRN (23:50)
[2021-06-24] MEDS ORDERED: morphine 2 MG/ML inj. syringe IV PRN ×2 (23:50)
[2021-06-24] MEDS ORDERED: ondansetron 4mg rapidly disintigrating tab PO PRN (23:50)
[2021-06-24] MEDS ORDERED: acetaminophen 650mg rectal suppository RC PRN (23:50)
[2021-06-24] MEDS ORDERED: mag hydrox/Alum hydrox/simeth 30ml oral suspension PO PRN (23:50)
[2021-06-24] MEDS ORDERED: diphenhydrAMINE 50 mg/ml inj IV PRN (23:50)
[2021-06-24] MEDS ORDERED: ondansetron/PF 4mg/2ml inj IV PRN (23:50)
[2021-06-24] MEDS ORDERED: magnesium hydroxide 30ml (MOM) UD suspension PO PRN (23:50)
[2021-06-25] MEDS ORDERED: albuterol 2.5 MG/3 ML nebule NEB ONE (01:55)
[2021-06-25 02:44] LABS: BASOPHILS % (AUTO) 0.3 % (0-1); EOSINOPHILS % (AUTO) 0 % (0-6); HEMATOCRIT 45.3 % (35.0-45.0); HEMOGLOBIN 15.3 g/dl (12.0-16.0); LYMPHOCYTES # (AUTO) 0.4 X10'3 (1.1-4.8); LYMPHOCYTES % (AUTO) 5.3 % (21-51); MEAN CORPUSCULAR HEMOGLOBIN 30.6 PG (27.0-31.0); MEAN CORPUSCULAR HGB CONC 33.7 g/dL (33.0-36.5); MEAN CORPUSCULAR VOLUME 90.8 FL (78-98); MEAN PLATELET VOLUME 10.1 FL (7.4-10.4); MONOCYTES # (AUTO) 0.2 X10'3 (0-0.9); MONOCYTES % (AUTO) 2.6 % (2-12); NEUTROPHILS # (AUTO) 6.5 X10'3 (1.8-7.7); NEUTROPHILS % (AUTO) 91.8 % (42-75); PLATELET COUNT 179 X10'3 (140-440); RED BLOOD COUNT 4.99 X10'6 (4.20-5.60); RED CELL DISTRIBUTION WIDTH 14.4 % (11.5-14.5); WHITE BLOOD COUNT 7.1 X10'3 (4.5-11.0)
[2021-06-25 02:59] LABS: CLARITY,URINE SLIGHTLY CLOUDY (Clear); COLOR,URINE YELLOW (Yellow); GLUCOSE, URINE NEGATIVE (Neg); KETONES,URINE NEGATIVE (Neg); LEUKOCYTE ESTERASE ,URINE NEGATIVE (Neg); NITRITES, URINE NEGATIVE (Neg); OCCULT BLOOD,URINE MODERATE (Neg); PROTEIN,URINE NEGATIVE (Neg); UROBILINOGEN,URINE 0.2 E.U/dL (0.2-1.0)
[2021-06-25 03:02] LABS: D-DIMER 3.77 MG/L FEU (0-0.50); PARTIAL THROMBOPLASTIN TIME 24 SECONDS (22-32)
[2021-06-25 03:04] LABS: URINE AMPHETAMINE SCREEN NEGATIVE (Neg); URINE BARBITUATE SCREEN NEGATIVE (Neg); URINE BENZODIAZEPINES SCREEN NEGATIVE (Neg); URINE CANNABINOID SCREEN NEGATIVE (Neg); URINE COCAINE SCREEN NEGATIVE (Neg); URINE METHADONE SCREEN NEGATIVE (Neg); URINE OPIATE SCREEN NEGATIVE (Neg); URINE PHENCYCLIDINE SCREEN NEGATIVE (Neg)
[2021-06-25 03:08] LABS: UA COLLECTION TYPE CLN CATCH MIDSTREAM
[2021-06-25 03:09] LABS: AMORPHOUS URATES 1+; BACTERIA,URINE FEW /HPF (Neg); MUCUS STRANDS FEW /LPF (Neg); RBC,URINE 0-2 /HPF (0-2); SQUAMOUS EPITHELIAL CELL,UR MODERATE /LPF (FEW); WBC,URINE NONE SEEN /HPF (0-4)
[2021-06-25 03:17] LABS: ALANINE AMINOTRANSFERASE 25 U/L (12-78); ALBUMIN/GLOBULIN RATIO 0.8 (1.1-1.5); ALKALINE PHOSPHATASE 74 IU/L (46-116); ANION GAP 7 (8-16); ASPARTATE AMINO TRANSFERASE 11 U/L (10-37); BILIRUBIN,TOTAL 0.5 MG/DL (0.1-1.0); BLOOD UREA NITROGEN 15 MG/DL (7-18); CALCIUM 8.3 MG/DL (8.5-10.1); CHLORIDE 106 MMOL/L (99-107); CHOL/HDL RATIO 2.3 (0.00-4.99); CHOLESTEROL 202 MG/DL (0-200); CREATININE 1.07 MG/DL (0.40-0.90); GLUCOSE 188 MG/DL (70-104); HDL CHOLESTEROL 86 MG/DL (35-60); LDL CHOLESTEROL 96 MG/DL (50-100); MAGNESIUM 2.7 MG/DL (1.5-2.4); PHOSPHORUS 4.5 MG/DL (2.3-4.5); POTASSIUM 4.7 MMOL/L (3.5-5.1); SODIUM 140 MMOL/L (135-145); TOTAL CARBON DIOXIDE 26.8 MMOL/L (24-32); TOTAL PROTEIN 6.9 G/DL (6.4-8.2); TRIGLYCERIDES 70 MG/DL (20-135); eGFR 52 ML/MIN
[2021-06-25 03:34] LABS: HEMOGLOBIN A1C 6.8 % (4.5-6.2)
[2021-06-25 04:00] VITALS: BP 99/61
[2021-06-25] MEDS ORDERED: glucagon, human recombinant 1mg kit SUBCUT PRN (05:30)
[2021-06-25] MEDS ORDERED: dextrose ORAL solution 15 GM/59 ML bottle PO PRN ×2 (05:30)
[2021-06-25] MEDS ORDERED: insulin Lispro (HumaLOG) vial - multi-dose SQ SCH (05:30)
[2021-06-25] MEDS ORDERED: MESSAGE TO PHARMACY PO ONE (05:30)
[2021-06-25] MEDS ORDERED: dextrose 50%-water 50ml dispensing syringe IV PRN ×2 (05:30)
--- NOTE | 2021-06-25 05:30 | NUR ---
Received pt, stable, no c/o SOB. Noted to have HGB A1c 6.8% in ER. Dr. De La Rosa notified, order received for Hyperglycemia protocol. Also order for RT eval & treat
[2021-06-25 06:00] VITALS: BP 96/66
--- NOTE | 2021-06-25 06:30 | NUR ---
Change of shift report given to Adelso RN Addendum: 06/25/21 at 0645 by Adela Horton RN Amended: Links added.
[2021-06-25] MEDS: pantoprazole 40mg Tablet.DR PO SCH (07:30)
[2021-06-25] MEDS ORDERED: nicotine 21mg patch - 24 hr TD SCH (08:00)
[2021-06-25] MEDS: azithromycin/NS 500mg/250ml 250 ML IV SCH (08:00)
[2021-06-25] MEDS: docusate sod 100mg capsule PO SCH ×2 (08:00→20:00)
[2021-06-25] MEDS: CefTRIAXone/D5W-Rocephin 1gm 50 ML IV SCH (08:00)
[2021-06-25] MEDS: heparin, porcine 5000 units/ml vial SQ SCH ×2 (08:00→23:33)
[2021-06-25] MEDS ORDERED: albuterol 2.5 MG/3 ML nebule NEB PRN (08:10)
[2021-06-25] MEDS: normal saline 1000ml 1,000 ML IV SCH (09:50)
[2021-06-25] MEDS ORDERED: IPRA3AMP31 NEB (10:48)
[2021-06-25 11:00] VITALS: BP 102/68
[2021-06-25] MEDS: ipratropium/albuterol 3ml nebule NEB SCH ×4 (11:16→23:27)
[2021-06-25] MEDS ORDERED: iohexol 350MG/ML 100ml bottle IV ONE (11:56)
--- NOTE | 2021-06-25 13:15 | NUR ---
DM consult: Pt with A1c 6.8%, new T2DM per consult. Noted patient's diet got cancelled upon placement of nutrition consult. Attempted TC to RN with recommendation for resumption of diet order as well as to inquire about if pt has received official DM dx by physician as RD unable to provide education until that is done. RN unavailable, message left with another RN. Will defer DM education until confirmation that physician has told pt about DM dx. Pt admit for acute respiratory failure with hypoxemia and COPD exacerbation. No documented BM since admit though routine bowel care was held this morning d/t not being needed per EMR. Will continue to follow. Recommendations: 1) Resume CHO controlled diet; regular diet IF BG levels well controlled, hyperglycemic protocol added to med list today 2) Bowel care PRN 3) Weekly scaled weights 4) DM education following confirmation of dx by physician, A1c 6.8% Addendum: 06/25/21 at [address] Amended: Links added.
[2021-06-25 15:00] VITALS: BP 121/67
--- NOTE | 2021-06-25 15:15 | NUR ---
PAGER ID: [phone] MESSAGE: 13A can I get teslon pearls for this patient she is coughing increasingly and it is bothering her. Respiratory was just here and she is getting treatments
[2021-06-25] MEDS: HYDROcodone/acetaminophen 10/325mg tab PO PRN (16:40)
[2021-06-25 18:00] VITALS: BP 121/67
--- NOTE | 2021-06-25 19:14 | NUR ---
Patient in room PCU 3013. I have received report from Gladis DAVE and had the opportunity to ask questions and assume patient care.
[2021-06-25] MEDS ORDERED: insulin glargine (Lantus) pen - multi-dose SQ SCH (21:00)
[2021-06-25 22:00] VITALS: BP 102/52
[2021-06-26] MEDS: normal saline 1000ml 1,000 ML IV SCH ×2 (00:30→05:50)
[2021-06-26] MEDS ORDERED: LORazepam 1 MG tablet PO PRN (01:20)
[2021-06-26 02:00] VITALS: BP 98/55
[2021-06-26] MEDS ORDERED: nicotine 21mg patch - 24 hr TD SCH (03:00)
[2021-06-26] MEDS: ipratropium/albuterol 3ml nebule NEB SCH ×4 (03:09→16:02)
[2021-06-26] MEDS: HYDROcodone/acetaminophen 10/325mg tab PO PRN (03:19)
[2021-06-26 07:08] LABS: BASOPHILS % (AUTO) 0.7 % (0-1); EOSINOPHILS # (AUTO) 0.1 X10'3 (0-0.9); EOSINOPHILS % (AUTO) 0.9 % (0-6); HEMATOCRIT 40.3 % (35.0-45.0); HEMOGLOBIN 13.4 g/dl (12.0-16.0); LYMPHOCYTES # (AUTO) 1.4 X10'3 (1.1-4.8); LYMPHOCYTES % (AUTO) 18.8 % (21-51); MEAN CORPUSCULAR HEMOGLOBIN 30.4 PG (27.0-31.0); MEAN CORPUSCULAR HGB CONC 33.4 g/dL (33.0-36.5); MEAN CORPUSCULAR VOLUME 91.1 FL (78-98); MEAN PLATELET VOLUME 9.5 FL (7.4-10.4); MONOCYTES # (AUTO) 0.9 X10'3 (0-0.9); MONOCYTES % (AUTO) 11.7 % (2-12); NEUTROPHILS % (AUTO) 67.9 % (42-75); PLATELET COUNT 154 X10'3 (140-440); RED BLOOD COUNT 4.42 X10'6 (4.20-5.60); RED CELL DISTRIBUTION WIDTH 14.7 % (11.5-14.5); WHITE BLOOD COUNT 7.4 X10'3 (4.5-11.0)
[2021-06-26] MEDS: pantoprazole 40mg Tablet.DR PO SCH (07:30)
[2021-06-26 07:32] LABS: ALANINE AMINOTRANSFERASE 22 U/L (12-78); ALBUMIN 2.4 G/DL (3.4-5.0); ALBUMIN/GLOBULIN RATIO 0.7 (1.1-1.5); ALKALINE PHOSPHATASE 59 IU/L (46-116); ANION GAP 8 (8-16); ASPARTATE AMINO TRANSFERASE 8 U/L (10-37); BILIRUBIN,TOTAL 0.3 MG/DL (0.1-1.0); BLOOD UREA NITROGEN 22 MG/DL (7-18); BUN/CREATININE RATIO 26.8 (6.6-38.0); CALCIUM 8.1 MG/DL (8.5-10.1); CHLORIDE 109 MMOL/L (99-107); CREATININE 0.82 MG/DL (0.40-0.90); GLUCOSE 97 MG/DL (70-104); SODIUM 144 MMOL/L (135-145); TOTAL CARBON DIOXIDE 27.4 MMOL/L (24-32); TOTAL PROTEIN 5.7 G/DL (6.4-8.2); eGFR 71 ML/MIN
[2021-06-26] MEDS: CefTRIAXone/D5W-Rocephin 1gm 50 ML IV SCH (08:00)
[2021-06-26] MEDS: azithromycin/NS 500mg/250ml 250 ML IV SCH (08:00)
[2021-06-26] MEDS: docusate sod 100mg capsule PO SCH (08:00)
[2021-06-26] MEDS: heparin, porcine 5000 units/ml vial SQ SCH (08:00)
--- NOTE | 2021-06-26 09:39 | NUR ---
Problems reprioritized. Patient report given, questions answered & plan of care reviewed with Gladis DAVE.
[2021-06-26] MEDS ORDERED: PRED10TA PO (12:06)
[2021-06-26] MEDS ORDERED: DOXY100C2 PO (12:06)
--- NOTE | 2021-06-26 17:54 | NUR ---
O2 Sat at rest on room air:_94__% If below 89%: Recovery O2 Sat at rest on _3__LPM:_94__%:___% via nasal cannula (mask/nasal cannula, etc..) No further documentation is necessary. If O2 Sat did not drop below 89% on room air,ambulate patient on room air. O2 Sat while ambulating on room air:87___% Recovery O2 Sat while ambulating on __3_LPM:__92_% No further documentation is necessary. If patient does not drop below 89% while ambulating, he/she does not qualify for home O2.
[2021-06-26] MEDS ORDERED: lactobacillus rhamnosus 10,000 MMU CELLS/CAPSULE PO SCH (20:00)
== END 2021-06-26 16:55 | disposition home or self-care (01) | DRG 189 ==
LOC: ER 17:52 → ED HOLD 23:53 → PCU 3S 06-25 03:50
PROVIDERS: ADMIT Family Medicine; ATTEND Family Medicine
PROC: B32T1ZZ Computerized Tomography (CT Scan) of Left Pulmonary Artery using Low Osmolar Contrast (ICD-10-PCS; principal; 2021-06-25)
PROC: B3201ZZ Computerized Tomography (CT Scan) of Thoracic Aorta using Low Osmolar Contrast (ICD-10-PCS; 2021-06-25)
PROC: B32S1ZZ Computerized Tomography (CT Scan) of Right Pulmonary Artery using Low Osmolar Contrast (ICD-10-PCS; 2021-06-25)
DX: J96.01 Acute respiratory failure with hypoxia (principal); N17.9 Acute kidney failure, unspecified; Z20.822 Contact with and (suspected) exposure to COVID-19; J43.9 Emphysema, unspecified; E11.9 Type 2 diabetes mellitus without complications; E86.1 Hypovolemia; F17.210 Nicotine dependence, cigarettes, uncomplicated; J20.9 Acute bronchitis, unspecified; R00.0 Tachycardia, unspecified; Z88.5 Allergy status to narcotic agent; Z79.899 Other long term (current) drug therapy; Z71.6 Tobacco abuse counseling
CPT/HCPCS: 36415; 71045; 71275; 80053; 80061; 80305; 81001; 81003; 82948; 83036; 83605; 83735; 83880; 84100; 84145; 84443; 84484; 85025; 85379; 85610; 85730; 87040; 87081; 87635; 93005; 94640; 94760; 96365; 96366; 96375; 99285; C9803; G0378; J0456; J0696; J1644; J1815; J2930; J3475; J7030; Q9967; U0003

== ENCOUNTER 2022-06-30 18:48 | Inpatient (IN) | payer BC ==
[~2022-06-30] VITALS: Ht 167.6 cm; Wt 85.9 kg
[~2022-06-30 18:48] MED LIST changes: +AZIT-83 PO; -BENZ-49 PO; +IPRA3AMP31 NEB; +PRED20TA PO
[2022-06-30] MEDS ORDERED: albuterol 2.5 MG/3 ML nebule NEB ONE ×2 (19:15→22:30)
[2022-06-30] MEDS ORDERED: normal saline 1000ML IV soln IVB ONE ×2 (19:15→21:35)
[2022-06-30] MEDS ORDERED: acetaminophen 325mg tablet PO ONE (19:15)
[2022-06-30] MEDS ORDERED: piperacillin/tazo 3.375gm/50ml 50 ML IV ONE (19:15)
[2022-06-30 19:34] LABS: BASOPHILS % (AUTO) 0.5 % (0-1); EOSINOPHILS % (AUTO) 0.5 % (0-6); HEMATOCRIT 47.9 % (35.0-45.0); HEMOGLOBIN 15.7 g/dl (12.0-16.0); LYMPHOCYTES # (AUTO) 0.7 X10'3 (1.1-4.8); LYMPHOCYTES % (AUTO) 7.1 % (21-51); MEAN CORPUSCULAR HEMOGLOBIN 29.1 PG (27.0-31.0); MEAN CORPUSCULAR HGB CONC 32.7 g/dL (33.0-36.5); MEAN CORPUSCULAR VOLUME 89.2 FL (78-98); MEAN PLATELET VOLUME 9.3 FL (7.4-10.4); MONOCYTES # (AUTO) 0.6 X10'3 (0-0.9); MONOCYTES % (AUTO) 6.7 % (2-12); NEUTROPHILS # (AUTO) 8.1 X10'3 (1.8-7.7); NEUTROPHILS % (AUTO) 85.2 % (42-75); PLATELET COUNT 232 X10'3 (140-440); RED BLOOD COUNT 5.38 X10'6 (4.20-5.60); RED CELL DISTRIBUTION WIDTH 14.9 % (11.5-14.5); WHITE BLOOD COUNT 9.5 X10'3 (4.5-11.0)
[2022-06-30 19:49] LABS: ALANINE AMINOTRANSFERASE 17 U/L (12-78); ALBUMIN 3.2 G/DL (3.4-5.0); ALBUMIN/GLOBULIN RATIO 0.8 (1.1-1.5); ALKALINE PHOSPHATASE 96 IU/L (46-116); ANION GAP 7 (8-16); ASPARTATE AMINO TRANSFERASE 13 U/L (10-37); BILIRUBIN,TOTAL 0.4 MG/DL (0.1-1.0); BLOOD UREA NITROGEN 15 MG/DL (7-18); BUN/CREATININE RATIO 14.6 (6.6-38.0); CALCIUM 8.2 MG/DL (8.5-10.1); CHLORIDE 103 MMOL/L (99-107); CREATININE 1.03 MG/DL (0.40-0.90); GLUCOSE 126 MG/DL (70-104); MAGNESIUM 2.3 MG/DL (1.5-2.4); POTASSIUM 4.2 MMOL/L (3.5-5.1); SODIUM 138 MMOL/L (135-145); TOTAL CARBON DIOXIDE 28.5 MMOL/L (24-32); TOTAL PROTEIN 7.1 G/DL (6.4-8.2); eGFR 54 ML/MIN
[2022-06-30 22:44] LABS: CLARITY,URINE CLOUDY (Clear); COLOR,URINE YELLOW (Yellow); GLUCOSE, URINE NEGATIVE (Neg); KETONES,URINE TRACE mg/dl (Neg); LEUKOCYTE ESTERASE ,URINE NEGATIVE (Neg); NITRITES, URINE NEGATIVE (Neg); OCCULT BLOOD,URINE SMALL (Neg); PH,URINE 5.5 (4.8-8.0); PROTEIN,URINE NEGATIVE (Neg); UROBILINOGEN,URINE 0.2 E.U/dL (0.2-1.0)
[2022-06-30 22:51] LABS: UA COLLECTION TYPE CLN CATCH MIDSTREAM
[2022-06-30 22:57] LABS: RBC,URINE 0-2 /HPF (0-2); SQUAMOUS EPITHELIAL CELL,UR FEW /LPF (FEW); WBC,URINE 0-4 /HPF (0-4)
[2022-06-30 22:58] LABS: AMORPHOUS URATES 1+
[2022-06-30 23:04] LABS: BACTERIA,URINE 1+ /HPF (Neg); STARCH,URINE MANY /HPF (NEGATIVE)
[2022-06-30] MEDS ORDERED: potassium Cl 20 mEq SR tablet PO PRN ×2 (23:35)
[2022-06-30] MEDS ORDERED: HYDROcodone/acetaminophen 5mg/325mg tablet PO PRN (23:35)
[2022-06-30] MEDS ORDERED: ondansetron/PF 4mg/2ml inj IV PRN (23:35)
[2022-06-30] MEDS ORDERED: potassium Cl 40MEQ/1/2NS 520ml 520 ML IV PRN (23:35)
[2022-06-30] MEDS ORDERED: magnesium hydroxide 30ml (MOM) UD suspension PO PRN (23:35)
[2022-06-30] MEDS ORDERED: acetaminophen 325mg tablet PO PRN ×2 (23:35)
[2022-06-30] MEDS ORDERED: mag hydrox/Alum hydrox/simeth 30ml oral suspension PO PRN (23:35)
[2022-06-30] MEDS ORDERED: magnesium 4gm in 100ml NS 100 ML IV PRN (23:35)
[2022-06-30] MEDS ORDERED: HYDROcodone/acetaminophen 10/325mg tab PO PRN (23:35)
[2022-06-30] MEDS ORDERED: magnesium Cl slow-release 64mg tablet PO PRN (23:35)
[2022-07-01] MEDS: methylPREDNISolone sod succ 125mg/2ml vial IV SCH ×3 (00:13→15:47)
--- NOTE | 2022-07-01 01:33 | NUR ---
Received pt report from Er. awaiting pt arrival Addendum: 07/01/22 at 0134 by Delia Watson RN Amended: Links added.
--- NOTE | 2022-07-01 01:35 | NUR ---
received pt from Er, RN amb pt to bathroom, voided and became very sob. o2 3L n/c. sat 93 to 94%.c/o sob rr 20's. Rt paged, pt not due for resp tx at this time. Addendum: 07/01/22 at 0242 by Delia Watson RN Amended: Links added.
[2022-07-01] MEDS: morphine 2 MG/ML inj. syringe IV PRN (02:02)
--- NOTE | 2022-07-01 02:02 | NUR ---
pt still having some sob, pain morphine given, enc slow deep breaths. will page resp again. Addendum: 07/01/22 at 0242 by Delia Watson RN Amended: Links added.
[2022-07-01] MEDS: ipratropium/albuterol 3ml nebule NEB PRN ×2 (02:08→06:39)
[2022-07-01 02:49] VITALS: BP 93/63
[2022-07-01] MEDS: piperacillin/tazo 3.375gm/50ml 50 ML IV SCH ×3 (04:40→20:37)
[2022-07-01] MEDS ORDERED: FLUT1DIS20 INH (04:56)
--- NOTE | 2022-07-01 05:01 | NUR ---
Pt is too sob with any exertion and talking. unable to complete full skin assessment and go over belongings. pt states her skin is intact and declines assessment at this time. Addendum: 07/01/22 at 0503 by Delia Watson RN Amended: Links added.
--- NOTE | 2022-07-01 05:05 | NUR ---
pt c/o sob with any exertion, req resp treatment when due Addendum: 07/01/22 at 0508 by Delia Watson RN Amended: Links added.
--- NOTE | 2022-07-01 05:56 | NUR ---
pt sat 92 to 92% on 3l, still c/o sob, have not heard back from HospitalistNat valverde due now. resp paged. Pt is angry about not getting treatment. Addendum: 07/01/22 at 0557 by Delia Watson RN Amended: Links added.
[2022-07-01 06:00] VITALS: BP 159/72
[2022-07-01 06:00] LABS: BASOPHILS % (AUTO) 0 % (0-1); EOSINOPHILS % (AUTO) 0 % (0-6); HEMATOCRIT 44.3 % (35.0-45.0); HEMOGLOBIN 14.6 g/dl (12.0-16.0); LYMPHOCYTES # (AUTO) 0.2 X10'3 (1.1-4.8); LYMPHOCYTES % (AUTO) 3.1 % (21-51); MEAN CORPUSCULAR HEMOGLOBIN 29.2 PG (27.0-31.0); MEAN CORPUSCULAR HGB CONC 32.9 g/dL (33.0-36.5); MEAN CORPUSCULAR VOLUME 88.8 FL (78-98); MEAN PLATELET VOLUME 10.1 FL (7.4-10.4); MONOCYTES # (AUTO) 0.1 X10'3 (0-0.9); MONOCYTES % (AUTO) 1.4 % (2-12); NEUTROPHILS # (AUTO) 7.3 X10'3 (1.8-7.7); NEUTROPHILS % (AUTO) 95.5 % (42-75); PLATELET COUNT 221 X10'3 (140-440); RED BLOOD COUNT 4.99 X10'6 (4.20-5.60); RED CELL DISTRIBUTION WIDTH 14.6 % (11.5-14.5); WHITE BLOOD COUNT 7.6 X10'3 (4.5-11.0)
--- NOTE | 2022-07-01 06:00 | NUR ---
RT called back and rt will give tx as soon as report complete. pt does not appear to be in distress, but is sob. and req treatment Addendum: 07/01/22 at 0602 by Delia Watson RN Amended: Links added.
--- NOTE | 2022-07-01 06:16 | NUR ---
Patient in room [facility] 353. I have received report from aidan DAVE and had the opportunity to ask questions and assume patient care.
--- NOTE | 2022-07-01 06:17 | NUR ---
Patient in room [facility] 353. I have received report from JOLIE Main and had the opportunity to ask questions and assume patient care. Pt is angry resptnot giving her a treatment, explaind resp paged and they will be here as soon as they are done with report. Addendum: 07/01/22 at 0618 by Delia Watson RN Amended: Links added.
--- NOTE | 2022-07-01 06:17 | NUR ---
Problems reprioritized. Patient report given, questions answered & plan of care reviewed with JOLIE atkins. Pt is angry respt not giving her a treatment, explaind resp paged and they will be here as soon as they are done with report.
[2022-07-01 06:29] LABS: ALANINE AMINOTRANSFERASE 14 U/L (12-78); ALBUMIN 2.9 G/DL (3.4-5.0); ALBUMIN/GLOBULIN RATIO 0.8 (1.1-1.5); ALKALINE PHOSPHATASE 84 IU/L (46-116); ANION GAP 8 (8-16); ASPARTATE AMINO TRANSFERASE 13 U/L (10-37); BILIRUBIN,TOTAL 0.3 MG/DL (0.1-1.0); BLOOD UREA NITROGEN 15 MG/DL (7-18); BUN/CREATININE RATIO 14.2 (6.6-38.0); CALCIUM 8.1 MG/DL (8.5-10.1); CHLORIDE 105 MMOL/L (99-107); CREATININE 1.06 MG/DL (0.40-0.90); GLUCOSE 211 MG/DL (70-104); POTASSIUM 4.1 MMOL/L (3.5-5.1); SODIUM 138 MMOL/L (135-145); TOTAL CARBON DIOXIDE 24.9 MMOL/L (24-32); TOTAL PROTEIN 6.7 G/DL (6.4-8.2); eGFR 53 ML/MIN
[2022-07-01] MEDS: enoxaparin 40mg/0.4ml syringe SUBCUT SCH (07:50)
[2022-07-01] MEDS: LORazepam 0.5 MG tablet PO PRN ×3 (07:50→20:45)
[2022-07-01] MEDS: docusate sod 100mg capsule PO SCH ×2 (07:52→20:37)
[2022-07-01] MEDS: K and/or MAG REPLACEMENT MC SCH ×2 (08:00→20:00)
[2022-07-01] MEDS ORDERED: ipratropium/albuterol 3ml nebule NEB PRN (08:20)
[2022-07-01 10:00] VITALS: BP 127/59
[2022-07-01] MEDS: ipratropium/albuterol 3ml nebule NEB SCH ×7 (11:00→23:24)
[2022-07-01] MEDS ORDERED: nicotine 14mg patch - 24hr TD ONE (11:35)
[2022-07-01] MEDS ORDERED: magnesium 2GM in 50ml NS 50 ML IV ONE (12:00)
[2022-07-01] MEDS ORDERED: NICO-687 TOP (13:09)
--- NOTE | 2022-07-01 16:10 | NUR ---
patient seen by Rt and by DR holguin, Rt tmts given q2hrly, magnesium 2gm administered per dr Holguin . Ativan given also with good results . O2 sats 93%. will continue to monitor
[2022-07-01] MEDS: benzonatate 100mg capsule PO PRN ×2 (16:55→23:00)
[2022-07-01 18:00] VITALS: BP 113/61
--- NOTE | 2022-07-01 18:05 | NUR ---
Problems reprioritized. Patient report given, questions answered & plan of care reviewed with Nathan DAVE.
--- NOTE | 2022-07-01 18:30 | NUR ---
Patient in room [facility] 353. I have received report from SANDIE DAVE and had the opportunity to ask questions and assume patient care.
[2022-07-01 22:00] VITALS: BP 108/58
[2022-07-02] MEDS: methylPREDNISolone sod succ 125mg/2ml vial IV SCH ×3 (00:35→20:07)
[2022-07-02] MEDS: ipratropium/albuterol 3ml nebule NEB SCH ×6 (03:39→23:21)
[2022-07-02] MEDS: piperacillin/tazo 3.375gm/50ml 50 ML IV SCH ×3 (04:36→20:07)
[2022-07-02] MEDS: benzonatate 100mg capsule PO PRN ×3 (05:51→21:02)
[2022-07-02] MEDS: LORazepam 0.5 MG tablet PO PRN ×3 (05:51→20:04)
[2022-07-02 05:58] LABS: BASOPHILS % (AUTO) 0.2 % (0-1); EOSINOPHILS % (AUTO) 0 % (0-6); HEMATOCRIT 44.7 % (35.0-45.0); HEMOGLOBIN 14.7 g/dl (12.0-16.0); LYMPHOCYTES # (AUTO) 0.9 X10'3 (1.1-4.8); LYMPHOCYTES % (AUTO) 6.4 % (21-51); MEAN CORPUSCULAR HEMOGLOBIN 29.3 PG (27.0-31.0); MEAN CORPUSCULAR HGB CONC 32.9 g/dL (33.0-36.5); MEAN CORPUSCULAR VOLUME 89.2 FL (78-98); MEAN PLATELET VOLUME 9.7 FL (7.4-10.4); MONOCYTES # (AUTO) 1.6 X10'3 (0-0.9); MONOCYTES % (AUTO) 11.6 % (2-12); NEUTROPHILS % (AUTO) 81.8 % (42-75); PLATELET COUNT 228 X10'3 (140-440); RED BLOOD COUNT 5.01 X10'6 (4.20-5.60); RED CELL DISTRIBUTION WIDTH 14.9 % (11.5-14.5); WHITE BLOOD COUNT 13.4 X10'3 (4.5-11.0)
[2022-07-02 06:07] LABS: ALANINE AMINOTRANSFERASE 16 U/L (12-78); ALBUMIN 2.8 G/DL (3.4-5.0); ALBUMIN/GLOBULIN RATIO 0.7 (1.1-1.5); ALKALINE PHOSPHATASE 74 IU/L (46-116); ANION GAP 6 (8-16); ASPARTATE AMINO TRANSFERASE 11 U/L (10-37); BILIRUBIN,TOTAL 0.2 MG/DL (0.1-1.0); BLOOD UREA NITROGEN 15 MG/DL (7-18); BUN/CREATININE RATIO 16.9 (6.6-38.0); CALCIUM 8.4 MG/DL (8.5-10.1); CHLORIDE 102 MMOL/L (99-107); CREATININE 0.89 MG/DL (0.40-0.90); GLUCOSE 142 MG/DL (70-104); MAGNESIUM 2.4 MG/DL (1.5-2.4); POTASSIUM 4.1 MMOL/L (3.5-5.1); SODIUM 137 MMOL/L (135-145); TOTAL CARBON DIOXIDE 28.6 MMOL/L (24-32); TOTAL PROTEIN 6.6 G/DL (6.4-8.2); eGFR 64 ML/MIN
--- NOTE | 2022-07-02 06:14 | NUR ---
Problems reprioritized. Patient report given, questions answered & plan of care reviewed with DEANA DAEV.
--- NOTE | 2022-07-02 07:00 | NUR ---
Patient in room [facility] 353. I have received report from Tatyana Joe RN and had the opportunity to ask questions and assume patient care.
[2022-07-02 07:04] VITALS: BP 107/76
[2022-07-02] MEDS: docusate sod 100mg capsule PO SCH ×2 (07:35→20:03)
[2022-07-02] MEDS: morphine 2 MG/ML inj. syringe IV PRN ×2 (07:35→12:44)
[2022-07-02] MEDS: nicotine 14mg patch - 24hr TD SCH ×2 (07:36→07:44)
[2022-07-02] MEDS: enoxaparin 40mg/0.4ml syringe SUBCUT SCH (07:36)
[2022-07-02] MEDS: K and/or MAG REPLACEMENT MC SCH ×2 (07:51→20:00)
[2022-07-02 11:00] VITALS: BP 104/54
[2022-07-02] MEDS ORDERED: albuterol 2.5 MG/3 ML nebule NEB PRN (17:45)
[2022-07-02] MEDS ORDERED: ipratropium/albuterol 3ml nebule NEB PRN (17:45)
[2022-07-02 18:00] VITALS: BP 99/48
--- NOTE | 2022-07-02 18:15 | NUR ---
Problems reprioritized. Patient report given, questions answered & plan of care reviewed with Maryan DAVE.
[2022-07-02] MEDS: budesonide 0.5mg/2ml UD nebule IH SCH (19:17)
[2022-07-02 22:00] VITALS: BP 85/59
[2022-07-03] MEDS: LORazepam 0.5 MG tablet PO PRN ×3 (03:04→19:18)
[2022-07-03] MEDS: benzonatate 100mg capsule PO PRN ×3 (03:05→19:18)
[2022-07-03] MEDS: piperacillin/tazo 3.375gm/50ml 50 ML IV SCH ×3 (03:09→19:29)
[2022-07-03] MEDS: ipratropium/albuterol 3ml nebule NEB SCH ×6 (03:30→23:12)
--- NOTE | 2022-07-03 06:05 | NUR ---
Problems reprioritized. Patient report given, questions answered & plan of care reviewed with tony Rodriguez.
[2022-07-03 06:27] LABS: BASOPHILS % (AUTO) 0.1 % (0-1); EOSINOPHILS % (AUTO) 0 % (0-6); HEMOGLOBIN 13.7 g/dl (12.0-16.0); LYMPHOCYTES # (AUTO) 0.9 X10'3 (1.1-4.8); LYMPHOCYTES % (AUTO) 8.5 % (21-51); MEAN CORPUSCULAR HGB CONC 32.7 g/dL (33.0-36.5); MEAN CORPUSCULAR VOLUME 88.7 FL (78-98); MEAN PLATELET VOLUME 9.7 FL (7.4-10.4); MONOCYTES # (AUTO) 0.8 X10'3 (0-0.9); MONOCYTES % (AUTO) 7.2 % (2-12); NEUTROPHILS # (AUTO) 9.1 X10'3 (1.8-7.7); NEUTROPHILS % (AUTO) 84.2 % (42-75); PLATELET COUNT 245 X10'3 (140-440); RED BLOOD COUNT 4.73 X10'6 (4.20-5.60); RED CELL DISTRIBUTION WIDTH 14.9 % (11.5-14.5); WHITE BLOOD COUNT 10.8 X10'3 (4.5-11.0)
--- NOTE | 2022-07-03 06:35 | NUR ---
Patient in room [facility] 353. I have received report from Maryan DAVE and had the opportunity to ask questions and assume patient care.
[2022-07-03 06:40] LABS: TOTAL CARBON DIOXIDE 30.2 MMOL/L (24-32)
[2022-07-03 06:44] VITALS: BP 97/59
[2022-07-03 07:16] LABS: ALANINE AMINOTRANSFERASE 15 U/L (12-78); ALBUMIN 2.6 G/DL (3.4-5.0); ALBUMIN/GLOBULIN RATIO 0.7 (1.1-1.5); ALKALINE PHOSPHATASE 67 IU/L (46-116); ANION GAP 8 (8-16); ASPARTATE AMINO TRANSFERASE 10 U/L (10-37); BILIRUBIN,TOTAL 0.2 MG/DL (0.1-1.0); BLOOD UREA NITROGEN 21 MG/DL (7-18); BUN/CREATININE RATIO 22.6 (6.6-38.0); CALCIUM 8.3 MG/DL (8.5-10.1); CHLORIDE 100 MMOL/L (99-107); CREATININE 0.93 MG/DL (0.40-0.90); GLUCOSE 166 MG/DL (70-104); MAGNESIUM 2.2 MG/DL (1.5-2.4); POTASSIUM 4.2 MMOL/L (3.5-5.1); SODIUM 138 MMOL/L (135-145); TOTAL PROTEIN 6.2 G/DL (6.4-8.2); eGFR 61 ML/MIN
[2022-07-03] MEDS: docusate sod 100mg capsule PO SCH ×2 (07:34→19:18)
[2022-07-03] MEDS: enoxaparin 40mg/0.4ml syringe SUBCUT SCH (07:35)
[2022-07-03] MEDS: methylPREDNISolone sod succ 125mg/2ml vial IV SCH (07:35)
[2022-07-03] MEDS: nicotine 21mg patch - 24 hr TD SCH (08:00)
[2022-07-03] MEDS: K and/or MAG REPLACEMENT MC SCH ×2 (08:00→20:00)
[2022-07-03] MEDS: budesonide 0.5mg/2ml UD nebule IH SCH ×2 (08:02→19:23)
[2022-07-03 11:41] VITALS: BP 101/61
[2022-07-03 18:00] VITALS: BP 100/97
--- NOTE | 2022-07-03 18:23 | NUR ---
Problems reprioritized. Patient report given, questions answered & plan of care reviewed with Maryan DAVE.
[2022-07-03] MEDS: methylPREDNISolone sod succ/PF 40mg inj. IV SCH (19:17)
[2022-07-03 22:00] VITALS: BP 101/58
[2022-07-04] MEDS: LORazepam 0.5 MG tablet PO PRN ×4 (02:18→20:00)
[2022-07-04] MEDS: benzonatate 100mg capsule PO PRN ×3 (02:18→23:37)
[2022-07-04] MEDS: ipratropium/albuterol 3ml nebule NEB SCH ×6 (03:04→23:08)
[2022-07-04] MEDS: piperacillin/tazo 3.375gm/50ml 50 ML IV SCH ×3 (03:21→19:59)
[2022-07-04 05:00] VITALS: BP 126/75
--- NOTE | 2022-07-04 06:40 | NUR ---
Problems reprioritized. Patient report given, questions answered & plan of care reviewed with JOLIE WHITE.
[2022-07-04] MEDS: budesonide 0.5mg/2ml UD nebule IH SCH ×2 (07:29→19:18)
[2022-07-04 07:46] LABS: BASOPHILS % (AUTO) 0.1 % (0-1); EOSINOPHILS % (AUTO) 0 % (0-6); HEMATOCRIT 42.1 % (35.0-45.0); HEMOGLOBIN 14.1 g/dl (12.0-16.0); LYMPHOCYTES # (AUTO) 1.4 X10'3 (1.1-4.8); LYMPHOCYTES % (AUTO) 13.9 % (21-51); MEAN CORPUSCULAR HEMOGLOBIN 29.6 PG (27.0-31.0); MEAN CORPUSCULAR HGB CONC 33.5 g/dL (33.0-36.5); MEAN CORPUSCULAR VOLUME 88.4 FL (78-98); MEAN PLATELET VOLUME 9.6 FL (7.4-10.4); MONOCYTES # (AUTO) 0.8 X10'3 (0-0.9); MONOCYTES % (AUTO) 7.7 % (2-12); NEUTROPHILS # (AUTO) 7.9 X10'3 (1.8-7.7); NEUTROPHILS % (AUTO) 78.3 % (42-75); PLATELET COUNT 244 X10'3 (140-440); RED BLOOD COUNT 4.76 X10'6 (4.20-5.60); RED CELL DISTRIBUTION WIDTH 14.9 % (11.5-14.5); WHITE BLOOD COUNT 10.1 X10'3 (4.5-11.0)
[2022-07-04] MEDS: K and/or MAG REPLACEMENT MC SCH ×2 (08:00→20:00)
[2022-07-04 08:43] LABS: ALANINE AMINOTRANSFERASE 12 U/L (12-78); ALBUMIN 2.6 G/DL (3.4-5.0); ALBUMIN/GLOBULIN RATIO 0.7 (1.1-1.5); ALKALINE PHOSPHATASE 67 IU/L (46-116); ANION GAP 6 (8-16); ASPARTATE AMINO TRANSFERASE 8 U/L (10-37); BILIRUBIN,TOTAL 0.3 MG/DL (0.1-1.0); BLOOD UREA NITROGEN 17 MG/DL (7-18); BUN/CREATININE RATIO 15.6 (6.6-38.0); CALCIUM 8.1 MG/DL (8.5-10.1); CHLORIDE 103 MMOL/L (99-107); CREATININE 1.09 MG/DL (0.40-0.90); GLUCOSE 156 MG/DL (70-104); MAGNESIUM 2.2 MG/DL (1.5-2.4); POTASSIUM 3.7 MMOL/L (3.5-5.1); SODIUM 140 MMOL/L (135-145); TOTAL CARBON DIOXIDE 31.1 MMOL/L (24-32); TOTAL PROTEIN 6.1 G/DL (6.4-8.2); eGFR 51 ML/MIN
[2022-07-04] MEDS: methylPREDNISolone sod succ/PF 40mg inj. IV SCH ×2 (08:51→20:00)
[2022-07-04] MEDS: docusate sod 100mg capsule PO SCH ×2 (08:52→20:00)
[2022-07-04] MEDS: enoxaparin 40mg/0.4ml syringe SUBCUT SCH (08:52)
[2022-07-04] MEDS: nicotine 21mg patch - 24 hr TD SCH (08:52)
[2022-07-04] MEDS ORDERED: PRED20TA PO (10:31)
[2022-07-04] MEDS ORDERED: LEVO-65 PO (10:31)
[2022-07-04 11:00] VITALS: BP 122/70
--- NOTE | 2022-07-04 11:16 | NUR ---
PATIENT IS BEING DISCHARGED, WAITING ON
--- NOTE | 2022-07-04 11:35 | NUR ---
PAGE TO RESPIRATORY 353 JASIEL MIJARES PATIENT WAS DUE A BREATHING TREATMENT AT 11, AND HAS HAD AN ASTHMA ATTACK. CHRISTOPHER
--- NOTE | 2022-07-04 11:45 | NUR ---
PAGER ID: [phone] MESSAGE: [phone] JASIEL MIJARES PATIENT STATED SHE CAN'T GO HOME, SHE CAN'T GET TO THE COMMODE WITHOUT HAVING AN ASTHMA ATTACK PAGED RESPIRATORY FOR A BREATHING TREATMENT.
--- NOTE | 2022-07-04 12:06 | NUR ---
STATES SHE HAD AN ASTHMA ATTACK GETTING UP TO THE COMMODE AND CAN'T GO HOME
--- NOTE | 2022-07-04 15:20 | NUR ---
patient requesting breathing treatment and yaima dhillon Addendum: 07/04/22 at 1521 by Mary Quispe RN Amended: Links added.
--- NOTE | 2022-07-04 15:22 | NUR ---
Merlyn Gaitan patient requesting her breathing treatment Mary
[2022-07-04 18:00] VITALS: BP 110/64
--- NOTE | 2022-07-04 18:18 | NUR ---
Problems reprioritized. Patient report given, questions answered & plan of care reviewed with Maira DAVE.
[2022-07-04 22:00] VITALS: BP 100/66
[2022-07-05] MEDS: ipratropium/albuterol 3ml nebule NEB SCH ×4 (03:08→14:53)
[2022-07-05] MEDS: LORazepam 0.5 MG tablet PO PRN ×2 (03:27→07:23)
[2022-07-05] MEDS: piperacillin/tazo 3.375gm/50ml 50 ML IV SCH ×2 (03:28→12:04)
--- NOTE | 2022-07-05 06:34 | NUR ---
Problems reprioritized. Patient report given, questions answered & plan of care reviewed with JOLIE FRANCO.
[2022-07-05 06:48] LABS: BASOPHILS % (AUTO) 0.5 % (0-1); EOSINOPHILS % (AUTO) 0 % (0-6); HEMATOCRIT 43.3 % (35.0-45.0); HEMOGLOBIN 14.3 g/dl (12.0-16.0); LYMPHOCYTES # (AUTO) 1.5 X10'3 (1.1-4.8); LYMPHOCYTES % (AUTO) 16.5 % (21-51); MEAN CORPUSCULAR HEMOGLOBIN 29.4 PG (27.0-31.0); MEAN CORPUSCULAR VOLUME 89.1 FL (78-98); MEAN PLATELET VOLUME 9.4 FL (7.4-10.4); MONOCYTES # (AUTO) 0.7 X10'3 (0-0.9); MONOCYTES % (AUTO) 7.7 % (2-12); NEUTROPHILS % (AUTO) 75.3 % (42-75); PLATELET COUNT 266 X10'3 (140-440); RED BLOOD COUNT 4.86 X10'6 (4.20-5.60); WHITE BLOOD COUNT 9.3 X10'3 (4.5-11.0)
[2022-07-05 07:02] LABS: ALANINE AMINOTRANSFERASE 19 U/L (12-78); ALBUMIN 2.7 G/DL (3.4-5.0); ALBUMIN/GLOBULIN RATIO 0.8 (1.1-1.5); ALKALINE PHOSPHATASE 71 IU/L (46-116); ANION GAP 5 (8-16); ASPARTATE AMINO TRANSFERASE 14 U/L (10-37); BILIRUBIN,TOTAL 0.3 MG/DL (0.1-1.0); BLOOD UREA NITROGEN 17 MG/DL (7-18); CALCIUM 8.3 MG/DL (8.5-10.1); CHLORIDE 102 MMOL/L (99-107); GLUCOSE 186 MG/DL (70-104); SODIUM 138 MMOL/L (135-145); TOTAL CARBON DIOXIDE 30.8 MMOL/L (24-32); TOTAL PROTEIN 6.3 G/DL (6.4-8.2); eGFR 56 ML/MIN
[2022-07-05] MEDS: budesonide 0.5mg/2ml UD nebule IH SCH (07:11)
[2022-07-05] MEDS: K and/or MAG REPLACEMENT MC SCH (07:17)
[2022-07-05] MEDS: benzonatate 100mg capsule PO PRN (07:23)
[2022-07-05] MEDS: docusate sod 100mg capsule PO SCH (08:03)
[2022-07-05] MEDS: enoxaparin 40mg/0.4ml syringe SUBCUT SCH (08:03)
[2022-07-05] MEDS: methylPREDNISolone sod succ/PF 40mg inj. IV SCH (08:03)
[2022-07-05] MEDS: nicotine 21mg patch - 24 hr TD SCH (08:03)
[2022-07-05 09:00] LABS: PLATELET ESTIMATE NORMAL; TOTAL CELLS COUNTED 100
[2022-07-05] MEDS ORDERED: pneumococcal 23-VAL P-sac vacc 25 mcg/0.5ml vial IMVAC ONE (16:25)
== END 2022-07-05 16:58 | disposition home or self-care (01) | DRG 193 ==
LOC: ER 18:49 → ED HOLD 23:39 → SUR 3N 07-01 01:33
PROVIDERS: ADMIT Internal Medicine; ATTEND Family Medicine
DX: J18.9 Pneumonia, unspecified organism (principal); J96.01 Acute respiratory failure with hypoxia; J44.0 Chronic obstructive pulmonary disease with (acute) lower respiratory infection; J45.901 Unspecified asthma with (acute) exacerbation; J44.1 Chronic obstructive pulmonary disease with (acute) exacerbation; Z20.822 Contact with and (suspected) exposure to COVID-19; F17.210 Nicotine dependence, cigarettes, uncomplicated; R26.2 Difficulty in walking, not elsewhere classified; Z88.5 Allergy status to narcotic agent; Z79.899 Other long term (current) drug therapy
CPT/HCPCS: 36415; 71045; 80053; 81001; 83605; 83735; 84145; 85007; 85025; 87040; 87081; 87502; 87503; 87635; 94640; 94760; 96365; 97116; 97161; 99285; C9803; G0378; J1650; J2270; J2543; J2920; J2930; J3475; J7030

== ENCOUNTER 2022-11-26 21:38 | Emergency (ER) | payer BC ==
[~2022-11-26] VITALS: Ht 167.6 cm; Wt 86.1 kg
[~2022-11-26 21:38] MED LIST changes: -AZIT-83 PO; -FLUT1BLS10 INH; +FLUT1DIS20 INH; +NICO-687 TOP; -PRED10TA PO; -PRED20TA PO
[2022-11-26] MEDS ORDERED: methylPREDNISolone sod succ 125mg/2ml vial IV ONE (22:10)
[2022-11-26] MEDS ORDERED: CefTRIAXone 2gm/D5W 50ml BAG 50 ML IV ONE (22:15)
[2022-11-26] MEDS: albuterol 2.5 MG/3 ML nebule CONTNEB PRN (22:20)
[2022-11-26 23:21] LABS: BASOPHILS % (AUTO) 0.2 % (0-1); EOSINOPHILS % (AUTO) 0.1 % (0-6); HEMATOCRIT 43.3 % (35.0-45.0); HEMOGLOBIN 14.4 g/dl (12.0-16.0); LYMPHOCYTES # (AUTO) 0.8 X10'3 (1.1-4.8); LYMPHOCYTES % (AUTO) 6.9 % (21-51); MEAN CORPUSCULAR HEMOGLOBIN 29.2 PG (27.0-31.0); MEAN CORPUSCULAR HGB CONC 33.3 g/dL (33.0-36.5); MEAN CORPUSCULAR VOLUME 87.8 FL (78-98); MEAN PLATELET VOLUME 9.9 FL (7.4-10.4); MONOCYTES # (AUTO) 1.6 X10'3 (0-0.9); MONOCYTES % (AUTO) 14.3 % (2-12); NEUTROPHILS # (AUTO) 8.6 X10'3 (1.8-7.7); NEUTROPHILS % (AUTO) 78.5 % (42-75); PLATELET COUNT 191 X10'3 (140-440); RED BLOOD COUNT 4.94 X10'6 (4.20-5.60); RED CELL DISTRIBUTION WIDTH 14.2 % (11.5-14.5)
[2022-11-26 23:39] LABS: ALANINE AMINOTRANSFERASE 12 U/L (12-78); ALBUMIN 2.9 G/DL (3.4-5.0); ALBUMIN/GLOBULIN RATIO 0.7 (1.1-1.5); ALKALINE PHOSPHATASE 77 IU/L (46-116); ANION GAP 8 (8-16); ASPARTATE AMINO TRANSFERASE 15 U/L (10-37); BILIRUBIN,TOTAL 0.6 MG/DL (0.1-1.0); BLOOD UREA NITROGEN 14 MG/DL (7-18); BUN/CREATININE RATIO 16.5 (10.0-20.0); CALCIUM 8.4 MG/DL (8.5-10.1); CHLORIDE 105 MMOL/L (99-107); CREATININE 0.85 MG/DL (0.40-0.90); GLUCOSE 145 MG/DL (70-104); POTASSIUM 3.5 MMOL/L (3.5-5.1); SODIUM 138 MMOL/L (135-145); TOTAL CARBON DIOXIDE 25.5 MMOL/L (24-32); TOTAL PROTEIN 6.9 G/DL (6.4-8.2); eGFR 68 ML/MIN
[2022-11-27] MEDS ORDERED: AZIT500T9 PO (05:38)
[2022-11-27] MEDS ORDERED: PRED10TA23 PO (05:38)
[2022-11-27] MEDS ORDERED: BUDE10.7 IH (05:38)
[2022-11-27] MEDS ORDERED: DOXY-11 PO (05:38)
--- NOTE | 2022-11-27 06:43 | NUR ---
Pt struggling to breathe. RT and provider notified by [facility].
[2022-11-27] MEDS: albuterol 2.5 MG/3 ML nebule CONTNEB PRN (07:18)
[2022-11-27 08:59] VITALS: BP 121/70
== END 2022-11-27 09:48 | disposition home or self-care (01) ==
LOC: ER 21:38
DX: J44.1 Chronic obstructive pulmonary disease with (acute) exacerbation (principal); F17.200 Nicotine dependence, unspecified, uncomplicated; Z88.5 Allergy status to narcotic agent; Z79.899 Other long term (current) drug therapy
CPT/HCPCS: 36415; 71046; 80053; 83605; 83880; 85025; 87040; 94640; 94644; 94645; 96365; 96366; 96375; 99285; J0696; J2930; 94760; A7015

== ENCOUNTER 2023-02-13 13:53 | Emergency (ER) | payer BC ==
[~2023-02-13] VITALS: Ht 198.1 cm; Wt 80.0 kg
[~2023-02-13 13:53] MED LIST changes: +AZIT500T9 PO; +BUDE10.7 IH
[2023-02-13 14:15] LABS: BASOPHILS # (AUTO) 0.1 X10'3 (0-0.2); BASOPHILS % (AUTO) 1.4 % (0-1); EOSINOPHILS # (AUTO) 0.1 X10'3 (0-0.9); HEMATOCRIT 46.9 % (35.0-45.0); HEMOGLOBIN 15.7 g/dl (12.0-16.0); LYMPHOCYTES # (AUTO) 1.9 X10'3 (1.1-4.8); LYMPHOCYTES % (AUTO) 26.7 % (21-51); MEAN CORPUSCULAR HEMOGLOBIN 29.5 PG (27.0-31.0); MEAN CORPUSCULAR HGB CONC 33.5 g/dL (33.0-36.5); MEAN CORPUSCULAR VOLUME 88.2 FL (78-98); MEAN PLATELET VOLUME 9.3 FL (7.4-10.4); MONOCYTES # (AUTO) 0.9 X10'3 (0-0.9); MONOCYTES % (AUTO) 13.2 % (2-12); NEUTROPHILS # (AUTO) 4.1 X10'3 (1.8-7.7); NEUTROPHILS % (AUTO) 56.7 % (42-75); PLATELET COUNT 219 X10'3 (140-440); RED BLOOD COUNT 5.31 X10'6 (4.20-5.60); RED CELL DISTRIBUTION WIDTH 15.2 % (11.5-14.5); WHITE BLOOD COUNT 7.2 X10'3 (4.5-11.0)
[2023-02-13 14:34] LABS: ALANINE AMINOTRANSFERASE 19 U/L (12-78); ALBUMIN 3.3 G/DL (3.4-5.0); ALBUMIN/GLOBULIN RATIO 0.9 (1.1-1.5); ALKALINE PHOSPHATASE 81 IU/L (46-116); ANION GAP 7 (8-16); ASPARTATE AMINO TRANSFERASE 17 U/L (10-37); BILIRUBIN,TOTAL 0.4 MG/DL (0.1-1.0); BLOOD UREA NITROGEN 12 MG/DL (7-18); BUN/CREATININE RATIO 13.3 (10.0-20.0); CALCIUM 8.7 MG/DL (8.5-10.1); CHLORIDE 103 MMOL/L (99-107); GLUCOSE 123 MG/DL (70-104); SODIUM 137 MMOL/L (135-145); TOTAL PROTEIN 7.1 G/DL (6.4-8.2); eGFR 63 ML/MIN
[2023-02-13 14:42] LABS: PRO BRAIN NATRIURETIC PEPTIDE 30 PG/ML (0-125)
[2023-02-13] MEDS ORDERED: methylPREDNISolone sod succ 125mg/2ml vial IV ONE (15:25)
[2023-02-13] MEDS ORDERED: albuterol 2.5 MG/3 ML nebule CONTNEB PRN ×2 (15:25→17:25)
[2023-02-13] MEDS ORDERED: normal saline 1000ML IV soln IVB ONE (15:25)
[2023-02-13 15:49] VITALS: PULSE 104; RESP 20; O2SAT 95
[2023-02-13 17:02] VITALS: PULSE 102; RESP 20; O2SAT 92
[2023-02-13] MEDS ORDERED: ipratropium/albuterol 3ml nebule NEB ONE (17:45)
[2023-02-13 18:00] VITALS: PULSE 101; RESP 20; O2SAT 91
[2023-02-13 18:10] VITALS: PULSE 94; RESP 20; O2SAT 93
--- NOTE | 2023-02-13 18:22 | NUR ---
ambulating patient with pulse oximeter. Addendum: 02/13/23 at 1827 by [email or web address] Pt 02 saturation while ambulating is 92%
[2023-02-13] MEDS ORDERED: ipratropium/albuterol 3ml nebule NEB SCH (19:00)
[2023-02-13 20:00] VITALS: BP 100/73; PULSE 85; RESP 18; O2SAT 94
[2023-02-13] MEDS ORDERED: BECL7.3A INH (21:23)
[2023-02-13] MEDS ORDERED: PRED20TA PO (21:23)
== END 2023-02-13 21:51 | disposition home or self-care (01) ==
LOC: ER 13:54
DX: R06.03 Acute respiratory distress (principal); J44.1 Chronic obstructive pulmonary disease with (acute) exacerbation; Z88.5 Allergy status to narcotic agent; Z79.899 Other long term (current) drug therapy
CPT/HCPCS: 36415; 71045; 80053; 83880; 84484; 85025; 93005; 94640; 94644; 96361; 96374; 99291; J2930; J7030; 94760; A4615; A7015

== ENCOUNTER 2023-12-16 11:50 | Inpatient (IN) | payer BC ==
[2023-12-16] VITALS (12 sets, daily range): BP systolic 124–126; BP diastolic 69–89; PULSE 83–129; RESP 16–27; TEMP 97.3–98.7; O2SAT 92–99
[~2023-12-16] VITALS: Ht 172.7 cm; Wt 87.6 kg
[~2023-12-16 11:50] MED LIST changes: -AZIT500T9 PO; +BUDE0.5A3 NEB; +BUDE10.2 INH; -BUDE10.7 IH; -FLUT1DIS20 INH; +LACT1CAP26 PO; +PANT40TA54 PO
[2023-12-16 12:29] LABS: BASOPHILS % (AUTO) 0.4 % (0-1); EOSINOPHILS % (AUTO) 0 % (0-6); HEMATOCRIT 47.4 % (35.0-45.0); HEMOGLOBIN 15.9 g/dl (12.0-16.0); LYMPHOCYTES # (AUTO) 0.7 X10'3 (1.1-4.8); LYMPHOCYTES % (AUTO) 9.5 % (21-51); MEAN CORPUSCULAR HEMOGLOBIN 29.4 PG (27.0-31.0); MEAN CORPUSCULAR HGB CONC 33.6 g/dL (33.0-36.5); MEAN CORPUSCULAR VOLUME 87.4 FL (78-98); MEAN PLATELET VOLUME 9.5 FL (7.4-10.4); MONOCYTES # (AUTO) 0.9 X10'3 (0-0.9); MONOCYTES % (AUTO) 13.4 % (2-12); NEUTROPHILS # (AUTO) 5.3 X10'3 (1.8-7.7); NEUTROPHILS % (AUTO) 76.7 % (42-75); PLATELET COUNT 205 X10'3 (140-440); RED BLOOD COUNT 5.42 X10'6 (4.20-5.60)
[2023-12-16 12:36] LABS: ALBUMIN 3.2 G/DL (3.4-5.0); ANION GAP 10 (8-16); BLOOD UREA NITROGEN 21 MG/DL (7-18); BUN/CREATININE RATIO 23.6 (10.0-20.0); CALCIUM 8.5 MG/DL (8.5-10.1); CHLORIDE 100 MMOL/L (99-107); CREATININE 0.89 MG/DL (0.40-0.90); GLUCOSE 138 MG/DL (70-104); PRO BRAIN NATRIURETIC PEPTIDE 55 PG/ML (0-125); SODIUM 138 MMOL/L (135-145); TOTAL CARBON DIOXIDE 28.3 MMOL/L (24-32); eCRCL 65 ML/MIN; eGFR 64 ML/MIN
[2023-12-16 12:38] LABS: POTASSIUM 4.6 MMOL/L (3.5-5.1)
[2023-12-16] MEDS: methylPREDNISolone sod succ 125mg/2ml vial IV ONE (12:38)
[2023-12-16] MEDS ORDERED: ipratropium 0.5 MG/2.5ML nebule IH ONE (13:43)
[2023-12-16] MEDS ORDERED: ondansetron/PF 4mg/2ml inj IV PRN (13:50)
[2023-12-16] MEDS ORDERED: magnesium 4gm in 100ml NS 100 ML IV PRN (13:50)
[2023-12-16] MEDS ORDERED: potassium Cl 40MEQ/1/2NS 520ml 520 ML IV PRN (13:50)
[2023-12-16] MEDS ORDERED: magnesium Cl slow-release 64mg tablet PO PRN (13:50)
[2023-12-16] MEDS ORDERED: mag hydrox/Alum hydrox/simeth 30ml oral suspension PO PRN (13:50)
[2023-12-16] MEDS ORDERED: magnesium 2GM in 50ml NS 50 ML IV PRN (13:50)
[2023-12-16] MEDS ORDERED: acetaminophen 325mg tablet PO PRN (13:50)
[2023-12-16] MEDS ORDERED: potassium Cl 20 mEq SR tablet PO PRN ×2 (13:50)
[2023-12-16 13:51] LABS: ABG BASE EXCESS 3.1 mmol/L (-2.0-2.0); ABG HCO3 28.9 mmol/L (22.0-26.0); ABG OXYGEN SATURATION 94.9 % (94-97); ABG PCO2 (T) 46.5 mmHg (32.0-45.0); ABG PH (T) 7.408 (7.350-7.450); ABG PO2 (T) 67.9 mmHg (75.0-100.0); ALLEN'S TEST POSITIVE; FCOHb 0.4 % (0.0-3.9); FHHb 5.1 % (0.0-5.0); FLOW 3 L/min; FMetHb 0.4 % (0.0-1.5); FO2Hb 94.1 % (94-97); MODE NC; PATIENT TEMPERATURE 36.3; TOTAL HEMOGLOBIN 16.5 G/dl (12.0-16.0)
[2023-12-16] MEDS ORDERED: albuterol 2.5 MG/3 ML nebule NEB PRN (13:55)
[2023-12-16] MEDS: ipratropium/albuterol 3ml nebule NEB SCH (14:03)
[2023-12-16 14:14] LABS: D-DIMER 1.33 MG/L FEU (0-0.50); PROTHROMBIN TIME 10.3 SECONDS (9.0-12.0)
[2023-12-16] MEDS: CefTRIAXone 2gm/D5W 50ml BAG 50 ML IV ONE (15:05)
[2023-12-16] MEDS: azithromycin/NS 500mg/250ml 250 ML IV ONE (15:25)
[2023-12-16] MEDS: normal saline 1000ml 1,000 ML IV SCH ×2 (15:30→16:05)
[2023-12-16] MEDS ORDERED: ipratropium/albuterol 3ml nebule NEB SCH (16:00)
[2023-12-16] MEDS ORDERED: iohexol 350MG/ML 100ml bottle IV ONE (16:20)
[2023-12-16] MEDS ORDERED: LORazepam 0.5 MG tablet PO PRN (16:30)
[2023-12-16] MEDS: K and/or MAG REPLACEMENT MC SCH (19:16)
[2023-12-16] MEDS: methylPREDNISolone sod succ 125mg/2ml vial IV SCH (19:28)
[2023-12-16] MEDS: enoxaparin 40mg/0.4ml syringe SUBCUT SCH (19:28)
[2023-12-16] MEDS: LORazepam 0.5 MG tablet PO PRN (19:29)
[2023-12-16] MEDS: acetaminophen 325mg tablet PO PRN (19:30)
[2023-12-17] VITALS (23 sets, daily range): BP systolic 99–130; BP diastolic 63–78; PULSE 82–123; RESP 15–22; TEMP 96.9–98.2; O2SAT 93–99
[2023-12-17] MEDS: LORazepam 1 MG tablet PO ONE (01:50)
[2023-12-17] MEDS: albuterol 2.5 MG/3 ML nebule NEB PRN (05:43)
[2023-12-17 06:36] LABS: BASOPHILS % (AUTO) 0.2 % (0-1); EOSINOPHILS % (AUTO) 0 % (0-6); HEMATOCRIT 42.8 % (35.0-45.0); HEMOGLOBIN 14.2 g/dl (12.0-16.0); LYMPHOCYTES # (AUTO) 0.5 X10'3 (1.1-4.8); LYMPHOCYTES % (AUTO) 9.9 % (21-51); MEAN CORPUSCULAR HEMOGLOBIN 29.3 PG (27.0-31.0); MEAN CORPUSCULAR HGB CONC 33.1 g/dL (33.0-36.5); MEAN CORPUSCULAR VOLUME 88.8 FL (78-98); MEAN PLATELET VOLUME 9.4 FL (7.4-10.4); MONOCYTES # (AUTO) 0.5 X10'3 (0-0.9); MONOCYTES % (AUTO) 10.3 % (2-12); NEUTROPHILS # (AUTO) 4.2 X10'3 (1.8-7.7); NEUTROPHILS % (AUTO) 79.6 % (42-75); PLATELET COUNT 183 X10'3 (140-440); RED BLOOD COUNT 4.83 X10'6 (4.20-5.60); WHITE BLOOD COUNT 5.3 X10'3 (4.5-11.0)
[2023-12-17 06:40] LABS: ALBUMIN 2.7 G/DL (3.4-5.0); ANION GAP 3 (8-16); BLOOD UREA NITROGEN 19 MG/DL (7-18); BUN/CREATININE RATIO 21.6 (10.0-20.0); CALCIUM 7.9 MG/DL (8.5-10.1); CHLORIDE 104 MMOL/L (99-107); CHOL/HDL RATIO 2.6 (0.00-4.99); CHOLESTEROL 134 MG/DL (0-200); CREATININE 0.88 MG/DL (0.40-0.90); GLUCOSE 124 MG/DL (70-104); HDL CHOLESTEROL 51 MG/DL (35-60); LDL CHOLESTEROL 72 MG/DL (50-100); MAGNESIUM 2.4 MG/DL (1.5-2.4); PHOSPHORUS 3.6 MG/DL (2.3-4.5); POTASSIUM 4.5 MMOL/L (3.5-5.1); SODIUM 139 MMOL/L (135-145); TOTAL CARBON DIOXIDE 31.8 MMOL/L (24-32); TRIGLYCERIDES 50 MG/DL (20-135); eCRCL 66 ML/MIN; eGFR 65 ML/MIN
[2023-12-17] MEDS: CefTRIAXone/D5W-Rocephin 1gm 50 ML IV SCH (07:19)
[2023-12-17] MEDS: azithromycin/NS 500mg/250ml 250 ML IV SCH (09:29)
[2023-12-17] MEDS: LORazepam 0.5 MG tablet PO PRN (09:37)
[2023-12-17] MEDS ORDERED: magnesium Cl slow-release 64mg tablet PO PRN (10:10)
[2023-12-17] MEDS: benzonatate 100mg capsule PO ONE (10:19)
[2023-12-17] MEDS ORDERED: iohexol 350MG/ML 100ml bottle IV ONE (10:22)
[2023-12-17] MEDS ORDERED: budesonide 0.5mg/2ml UD nebule IH SCH (11:49)
[2023-12-17] MEDS: methylPREDNISolone sod succ/PF 40mg inj. IV SCH (13:54)
[2023-12-17] MEDS: benzonatate 100mg capsule PO SCH (13:59)
[2023-12-17] MEDS: LORazepam 2 mg/ml vial IV ONE (14:46)
[2023-12-17] MEDS: budesonide 0.5mg/2ml UD nebule IH SCH (19:14)
[2023-12-17] MEDS: pneumococcal 23-VAL P-sac vacc 25 mcg/0.5ml vial IMVAC ONE (23:01)
[2023-12-18] VITALS (26 sets, daily range): BP systolic 94–130; BP diastolic 60–78; PULSE 63–107; RESP 17–22; TEMP 95.9–98.6; O2SAT 92–98
[2023-12-18] MEDS: LORazepam 0.5 MG tablet PO PRN (04:13)
[2023-12-18 08:07] LABS: BASOPHILS % (AUTO) 0.1 % (0-1); EOSINOPHILS % (AUTO) 0 % (0-6); HEMATOCRIT 41.5 % (35.0-45.0); HEMOGLOBIN 13.7 g/dl (12.0-16.0); LYMPHOCYTES # (AUTO) 0.8 X10'3 (1.1-4.8); LYMPHOCYTES % (AUTO) 10.9 % (21-51); MEAN CORPUSCULAR HEMOGLOBIN 29.4 PG (27.0-31.0); MEAN CORPUSCULAR HGB CONC 33.1 g/dL (33.0-36.5); MEAN CORPUSCULAR VOLUME 88.8 FL (78-98); MEAN PLATELET VOLUME 9.8 FL (7.4-10.4); MONOCYTES # (AUTO) 0.8 X10'3 (0-0.9); MONOCYTES % (AUTO) 10.9 % (2-12); NEUTROPHILS # (AUTO) 5.7 X10'3 (1.8-7.7); NEUTROPHILS % (AUTO) 78.1 % (42-75); PLATELET COUNT 185 X10'3 (140-440); RED BLOOD COUNT 4.67 X10'6 (4.20-5.60); RED CELL DISTRIBUTION WIDTH 14.4 % (11.5-14.5); WHITE BLOOD COUNT 7.3 X10'3 (4.5-11.0)
[2023-12-18 08:37] LABS: ALBUMIN 2.6 G/DL (3.4-5.0); ANION GAP 6 (8-16); BLOOD UREA NITROGEN 15 MG/DL (7-18); CALCIUM 8.4 MG/DL (8.5-10.1); CHLORIDE 102 MMOL/L (99-107); CREATININE 0.75 MG/DL (0.40-0.90); GLUCOSE 129 MG/DL (70-104); MAGNESIUM 2.3 MG/DL (1.5-2.4); PHOSPHORUS 3.6 MG/DL (2.3-4.5); POTASSIUM 4.5 MMOL/L (3.5-5.1); SODIUM 140 MMOL/L (135-145); TOTAL CARBON DIOXIDE 32.1 MMOL/L (24-32); eCRCL 77 ML/MIN; eGFR 78 ML/MIN
[2023-12-18] MEDS: LORazepam 2 mg/ml vial IV ONE (09:18)
[2023-12-18 09:33] LABS: ABG BASE EXCESS 5.2 mmol/L (-2.0-2.0); ABG HCO3 31.7 mmol/L (22.0-26.0); ABG OXYGEN SATURATION 96.3 % (94-97); ABG PCO2 (T) 51.8 mmHg (32.0-45.0); ABG PO2 (T) 75.8 mmHg (75.0-100.0); ALLEN'S TEST POSITIVE; FCOHb 0.4 % (0.0-3.9); FHHb 3.7 % (0.0-5.0); FMetHb 0.3 % (0.0-1.5); FO2Hb 95.6 % (94-97); MODE MASK - BIPAP; PATIENT TEMPERATURE 36.1; RESPIRATORY RATE 10 b/min; TOTAL HEMOGLOBIN 14.5 G/dl (12.0-16.0)
[2023-12-18] MEDS ORDERED: ALPRAZolam 0.25mg tablet PO PRN (10:20)
[2023-12-18] MEDS: ALPRAZolam 0.5mg tablet PO PRN (13:42)
[2023-12-18] MEDS: duloxetine 20mg capsule.DR PO SCH (13:42)
[2023-12-19] VITALS (22 sets, daily range): BP systolic 106–125; BP diastolic 62–79; PULSE 70–90; RESP 15–22; TEMP 97–98; O2SAT 94–98
[2023-12-19 06:46] LABS: BASOPHILS % (AUTO) 0.1 % (0-1); EOSINOPHILS % (AUTO) 0 % (0-6); HEMATOCRIT 40.6 % (35.0-45.0); HEMOGLOBIN 13.5 g/dl (12.0-16.0); LYMPHOCYTES # (AUTO) 0.8 X10'3 (1.1-4.8); LYMPHOCYTES % (AUTO) 11.1 % (21-51); MEAN CORPUSCULAR HEMOGLOBIN 29.5 PG (27.0-31.0); MEAN CORPUSCULAR HGB CONC 33.2 g/dL (33.0-36.5); MEAN CORPUSCULAR VOLUME 88.8 FL (78-98); MEAN PLATELET VOLUME 9.6 FL (7.4-10.4); MONOCYTES # (AUTO) 0.9 X10'3 (0-0.9); MONOCYTES % (AUTO) 13.3 % (2-12); NEUTROPHILS # (AUTO) 5.3 X10'3 (1.8-7.7); NEUTROPHILS % (AUTO) 75.5 % (42-75); PLATELET COUNT 188 X10'3 (140-440); RED BLOOD COUNT 4.57 X10'6 (4.20-5.60); RED CELL DISTRIBUTION WIDTH 13.9 % (11.5-14.5)
[2023-12-19 07:19] LABS: ALBUMIN 2.6 G/DL (3.4-5.0); ANION GAP 5 (8-16); BLOOD UREA NITROGEN 19 MG/DL (7-18); BUN/CREATININE RATIO 27.5 (10.0-20.0); CALCIUM 8.2 MG/DL (8.5-10.1); CHLORIDE 102 MMOL/L (99-107); CREATININE 0.69 MG/DL (0.40-0.90); GLUCOSE 148 MG/DL (70-104); MAGNESIUM 2.6 MG/DL (1.5-2.4); PHOSPHORUS 3.6 MG/DL (2.3-4.5); POTASSIUM 4.3 MMOL/L (3.5-5.1); SODIUM 139 MMOL/L (135-145); TOTAL CARBON DIOXIDE 32.4 MMOL/L (24-32); eCRCL 84 ML/MIN; eGFR 86 ML/MIN
[2023-12-19] MEDS ORDERED: hydrOXYzine 10 MG tablet PO PRN (11:35)
[2023-12-19] MEDS: LORazepam 1 MG tablet PO PRN (21:07)
[2023-12-20] VITALS (19 sets, daily range): BP systolic 110–155; BP diastolic 56–73; PULSE 72–104; RESP 15–20; TEMP 97.5–98.6; O2SAT 91–98
[2023-12-20 06:13] LABS: BASOPHILS % (AUTO) 0.1 % (0-1); EOSINOPHILS % (AUTO) 0 % (0-6); HEMATOCRIT 41.1 % (35.0-45.0); HEMOGLOBIN 13.6 g/dl (12.0-16.0); LYMPHOCYTES # (AUTO) 0.8 X10'3 (1.1-4.8); LYMPHOCYTES % (AUTO) 9.8 % (21-51); MEAN CORPUSCULAR HEMOGLOBIN 29.3 PG (27.0-31.0); MEAN CORPUSCULAR HGB CONC 33.1 g/dL (33.0-36.5); MEAN CORPUSCULAR VOLUME 88.4 FL (78-98); MEAN PLATELET VOLUME 9.5 FL (7.4-10.4); MONOCYTES # (AUTO) 0.5 X10'3 (0-0.9); MONOCYTES % (AUTO) 5.9 % (2-12); NEUTROPHILS # (AUTO) 6.6 X10'3 (1.8-7.7); NEUTROPHILS % (AUTO) 84.2 % (42-75); PLATELET COUNT 188 X10'3 (140-440); RED BLOOD COUNT 4.65 X10'6 (4.20-5.60); WHITE BLOOD COUNT 7.9 X10'3 (4.5-11.0)
[2023-12-20 06:27] LABS: ALBUMIN 2.6 G/DL (3.4-5.0); ANION GAP 3 (8-16); BLOOD UREA NITROGEN 18 MG/DL (7-18); BUN/CREATININE RATIO 23.7 (10.0-20.0); CALCIUM 8.3 MG/DL (8.5-10.1); CHLORIDE 100 MMOL/L (99-107); CREATININE 0.76 MG/DL (0.40-0.90); GLUCOSE 169 MG/DL (70-104); MAGNESIUM 2.5 MG/DL (1.5-2.4); PHOSPHORUS 3.6 MG/DL (2.3-4.5); POTASSIUM 4.1 MMOL/L (3.5-5.1); SODIUM 137 MMOL/L (135-145); TOTAL CARBON DIOXIDE 33.8 MMOL/L (24-32); eCRCL 76 ML/MIN; eGFR 77 ML/MIN
[2023-12-21] VITALS (18 sets, daily range): BP systolic 111–137; BP diastolic 62–86; PULSE 77–98; RESP 14–20; TEMP 96.9–98.7; O2SAT 93–96
[2023-12-21 04:07] LABS: BASOPHILS % (AUTO) 0.1 % (0-1); EOSINOPHILS % (AUTO) 0 % (0-6); HEMATOCRIT 40.6 % (35.0-45.0); HEMOGLOBIN 13.4 g/dl (12.0-16.0); LYMPHOCYTES # (AUTO) 0.6 X10'3 (1.1-4.8); LYMPHOCYTES % (AUTO) 8.5 % (21-51); MEAN CORPUSCULAR HEMOGLOBIN 29.1 PG (27.0-31.0); MEAN CORPUSCULAR VOLUME 88.1 FL (78-98); MONOCYTES # (AUTO) 0.4 X10'3 (0-0.9); MONOCYTES % (AUTO) 4.6 % (2-12); NEUTROPHILS # (AUTO) 6.6 X10'3 (1.8-7.7); NEUTROPHILS % (AUTO) 86.8 % (42-75); PLATELET COUNT 191 X10'3 (140-440); RED BLOOD COUNT 4.61 X10'6 (4.20-5.60); WHITE BLOOD COUNT 7.6 X10'3 (4.5-11.0)
[2023-12-21 04:20] LABS: ALBUMIN 2.5 G/DL (3.4-5.0); ANION GAP 1 (8-16); BLOOD UREA NITROGEN 17 MG/DL (7-18); BUN/CREATININE RATIO 23.9 (10.0-20.0); CALCIUM 8.1 MG/DL (8.5-10.1); CHLORIDE 102 MMOL/L (99-107); CREATININE 0.71 MG/DL (0.40-0.90); GLUCOSE 212 MG/DL (70-104); MAGNESIUM 2.4 MG/DL (1.5-2.4); SODIUM 138 MMOL/L (135-145); TOTAL CARBON DIOXIDE 35.2 MMOL/L (24-32); eCRCL 82 ML/MIN; eGFR 83 ML/MIN
[2023-12-21] MEDS: lactose-reduced food (Ensure Enlive) - 237ml bottle PO SCH (18:00)
[2023-12-22] VITALS (15 sets, daily range): BP systolic 101–115; BP diastolic 60–73; PULSE 75–104; RESP 16–22; TEMP 98.1–98.4; O2SAT 94–97
[2023-12-22] MEDS ORDERED: CEFD300C3 PO (11:55)
[2023-12-22] MEDS ORDERED: PRED10TA23 PO (11:55)
[2023-12-22] MEDS ORDERED: GUAI120015 PO (14:29)
== END 2023-12-22 16:45 | disposition home or self-care (01) | DRG 189 ==
LOC: ER 11:51 → ED HOLD 13:54 → ORTHO 4S 18:49 → PCU 3S 12-17 22:41
PROVIDERS: ADMIT Family Medicine; ATTEND Family Medicine
PROC: B32T1ZZ Computerized Tomography (CT Scan) of Left Pulmonary Artery using Low Osmolar Contrast (ICD-10-PCS; principal; 2023-12-17)
PROC: B3201ZZ Computerized Tomography (CT Scan) of Thoracic Aorta using Low Osmolar Contrast (ICD-10-PCS; 2023-12-17)
PROC: B32S1ZZ Computerized Tomography (CT Scan) of Right Pulmonary Artery using Low Osmolar Contrast (ICD-10-PCS; 2023-12-17)
PROC: 5A09357 Assistance with Respiratory Ventilation, Less than 24 Consecutive Hours, Continuous Positive Airway Pressure (ICD-10-PCS; 2023-12-17)
PROC: 5A09357 Assistance with Respiratory Ventilation, Less than 24 Consecutive Hours, Continuous Positive Airway Pressure (ICD-10-PCS; 2023-12-18)
PROC: 5A09357 Assistance with Respiratory Ventilation, Less than 24 Consecutive Hours, Continuous Positive Airway Pressure (ICD-10-PCS; 2023-12-19)
PROC: 5A09357 Assistance with Respiratory Ventilation, Less than 24 Consecutive Hours, Continuous Positive Airway Pressure (ICD-10-PCS; 2023-12-20)
PROC: 5A09357 Assistance with Respiratory Ventilation, Less than 24 Consecutive Hours, Continuous Positive Airway Pressure (ICD-10-PCS; 2023-12-21)
DX: J96.21 Acute and chronic respiratory failure with hypoxia (principal); E87.20 Acidosis, unspecified; E87.3 Alkalosis; Z20.822 Contact with and (suspected) exposure to COVID-19; F41.9 Anxiety disorder, unspecified; J43.9 Emphysema, unspecified; R91.1 Solitary pulmonary nodule; F31.9 Bipolar disorder, unspecified; I27.81 Cor pulmonale (chronic); Z88.5 Allergy status to narcotic agent; Z87.891 Personal history of nicotine dependence; Z99.81 Dependence on supplemental oxygen
CPT/HCPCS: 36415; 36600; 71045; 71275; 80048; 80061; 82803; 83605; 83735; 83880; 84100; 84145; 84484; 85018; 85025; 85379; 85610; 87040; 87081; 87811; 90732; 93005; 94640; 94660; 94760; 96374; 97110; 97161; 97530; 97535; 99285; A4615; G0378; J0456; J0696; J1650; J2060; J2919; J7030; J7040; Q9967

== ENCOUNTER 2024-02-13 13:46 | Inpatient (IN) | payer BC ==
[~2024-02-13] VITALS: Ht 165.1 cm; Wt 85.7 kg
[~2024-02-13 13:46] MED LIST changes: -BUDE0.5A3 NEB; -BUDE10.2 INH; +CEFD300C3 PO; +GUAI120015 PO; -IPRA3AMP31 NEB; -LACT1CAP26 PO; -NICO-687 TOP; -PANT40TA54 PO
[2024-02-13 14:02] LABS: BASOPHILS # (AUTO) 0.1 X10'3 (0-0.2); BASOPHILS % (AUTO) 0.3 % (0-1); EOSINOPHILS # (AUTO) 0.1 X10'3 (0-0.9); EOSINOPHILS % (AUTO) 0.3 % (0-6); HEMOGLOBIN 14.1 g/dl (12.0-16.0); LYMPHOCYTES # (AUTO) 1.1 X10'3 (1.1-4.8); LYMPHOCYTES % (AUTO) 6.9 % (21-51); MEAN CORPUSCULAR HEMOGLOBIN 28.9 PG (27.0-31.0); MEAN CORPUSCULAR HGB CONC 32.8 g/dL (33.0-36.5); MEAN CORPUSCULAR VOLUME 88.3 FL (78-98); MEAN PLATELET VOLUME 9.5 FL (7.4-10.4); MONOCYTES # (AUTO) 1.4 X10'3 (0-0.9); NEUTROPHILS # (AUTO) 13.3 X10'3 (1.8-7.7); NEUTROPHILS % (AUTO) 83.5 % (42-75); PLATELET COUNT 264 X10'3 (140-440); RED BLOOD COUNT 4.87 X10'6 (4.20-5.60); RED CELL DISTRIBUTION WIDTH 14.6 % (11.5-14.5)
[2024-02-13 14:19] LABS: ALANINE AMINOTRANSFERASE 9 U/L (12-78); ALBUMIN/GLOBULIN RATIO 0.6 (1.1-1.5); ALKALINE PHOSPHATASE 66 IU/L (46-116); ANION GAP 6 (8-16); ASPARTATE AMINO TRANSFERASE 9 U/L (10-37); BILIRUBIN,TOTAL 0.5 MG/DL (0.1-1.0); BLOOD UREA NITROGEN 11 MG/DL (7-18); BUN/CREATININE RATIO 13.6 (10.0-20.0); CALCIUM 8.8 MG/DL (8.5-10.1); CHLORIDE 101 MMOL/L (99-107); CREATININE 0.81 MG/DL (0.40-0.90); GLUCOSE 196 MG/DL (70-104); POTASSIUM 3.8 MMOL/L (3.5-5.1); SODIUM 137 MMOL/L (135-145); TOTAL CARBON DIOXIDE 29.6 MMOL/L (24-32); TOTAL PROTEIN 7.7 G/DL (6.4-8.2); eGFR 71 ML/MIN
[2024-02-13 14:27] LABS: PRO BRAIN NATRIURETIC PEPTIDE < 30 PG/ML (0-125)
[2024-02-13 14:53] VITALS: PULSE 123; RESP 25; O2SAT 98
[2024-02-13] MEDS: ipratropium/albuterol 3ml nebule NEB ONE (14:53)
[2024-02-13 15:03] VITALS: PULSE 117; RESP 21; O2SAT 96
[2024-02-13 15:51] LABS: D-DIMER 1.23 MG/L FEU (0-0.50)
[2024-02-13] MEDS ORDERED: iohexol 350MG/ML 100ml bottle IV ONE (16:30)
[2024-02-13] MEDS: methylPREDNISolone sod succ 125mg/2ml vial IV ONE (17:10)
[2024-02-13] MEDS: CefTRIAXone 2gm/D5W 50ml BAG 50 ML IV ONE (17:10)
[2024-02-13] MEDS: albuterol 2.5 MG/3 ML nebule NEB ONE (19:53)
[2024-02-13 19:55] VITALS: PULSE 105; RESP 20; O2SAT 94
[2024-02-13 20:06] VITALS: PULSE 104; RESP 20; O2SAT 100
[2024-02-13] MEDS ORDERED: mag hydrox/Alum hydrox/simeth 30ml oral suspension PO PRN (20:55)
[2024-02-13] MEDS ORDERED: potassium Cl 20 mEq SR tablet PO PRN ×2 (20:55)
[2024-02-13] MEDS ORDERED: acetaminophen 325mg tablet PO PRN ×2 (20:55)
[2024-02-13] MEDS ORDERED: magnesium sulf-water 4G/100mL 100 ML IV PRN (20:55)
[2024-02-13] MEDS ORDERED: ondansetron/PF 4mg/2ml inj IV PRN (20:55)
[2024-02-13] MEDS ORDERED: potassium Cl 40MEQ/1/2NS 520ml 520 ML IV PRN (20:55)
[2024-02-13] MEDS ORDERED: magnesium Cl slow-release 64mg tablet PO PRN (20:55)
[2024-02-13] MEDS ORDERED: magnesium sulf-water 2g/50mL 50 ML IV PRN (20:55)
[2024-02-13] MEDS ORDERED: albuterol 2.5 MG/3 ML nebule NEB PRN (21:05)
[2024-02-13] MEDS: normal saline 1000ml 1,000 ML IV SCH (21:27)
[2024-02-13] MEDS ORDERED: ALBU17AE26 (21:47)
[2024-02-13] MEDS ORDERED: BUDE10.7 INH (21:51)
[2024-02-13] MEDS ORDERED: ATR0.5NEB IH (21:54)
[2024-02-13] MEDS ORDERED: ALBU18HF2 INH (21:59)
[2024-02-13 23:50] VITALS: PULSE 71; RESP 16; O2SAT 94
[2024-02-13] MEDS: ipratropium/albuterol 3ml nebule NEB PRN (23:50)
[2024-02-13 23:57] VITALS: PULSE 72; RESP 16
[2024-02-14] VITALS (13 sets, daily range): BP systolic 91–147; BP diastolic 50–70; PULSE 79–124; RESP 15–22; TEMP 97–98.4; O2SAT 92–99
[2024-02-14 05:23] LABS: BASOPHILS # (AUTO) 0.1 X10'3 (0-0.2); BASOPHILS % (AUTO) 0.7 % (0-1); EOSINOPHILS % (AUTO) 0 % (0-6); HEMATOCRIT 40.2 % (35.0-45.0); HEMOGLOBIN 13.4 g/dl (12.0-16.0); LYMPHOCYTES # (AUTO) 0.7 X10'3 (1.1-4.8); LYMPHOCYTES % (AUTO) 5.8 % (21-51); MEAN CORPUSCULAR HEMOGLOBIN 29.2 PG (27.0-31.0); MEAN CORPUSCULAR HGB CONC 33.3 g/dL (33.0-36.5); MEAN CORPUSCULAR VOLUME 87.7 FL (78-98); MEAN PLATELET VOLUME 10.4 FL (7.4-10.4); MONOCYTES # (AUTO) 0.3 X10'3 (0-0.9); MONOCYTES % (AUTO) 2.7 % (2-12); NEUTROPHILS # (AUTO) 11.2 X10'3 (1.8-7.7); NEUTROPHILS % (AUTO) 90.8 % (42-75); PLATELET COUNT 212 X10'3 (140-440); RED BLOOD COUNT 4.58 X10'6 (4.20-5.60); RED CELL DISTRIBUTION WIDTH 14.5 % (11.5-14.5); WHITE BLOOD COUNT 12.4 X10'3 (4.5-11.0)
[2024-02-14 05:32] LABS: PROTHROMBIN TIME 10.5 SECONDS (9.0-12.0)
[2024-02-14 05:40] LABS: ALBUMIN 2.6 G/DL (3.4-5.0); ANION GAP 5 (8-16); BLOOD UREA NITROGEN 15 MG/DL (7-18); BUN/CREATININE RATIO 21.7 (10.0-20.0); CALCIUM 8.9 MG/DL (8.5-10.1); CHLORIDE 102 MMOL/L (99-107); CREATININE 0.69 MG/DL (0.40-0.90); GLUCOSE 222 MG/DL (70-104); MAGNESIUM 2.3 MG/DL (1.5-2.4); POTASSIUM 3.9 MMOL/L (3.5-5.1); SODIUM 137 MMOL/L (135-145); TOTAL CARBON DIOXIDE 30.1 MMOL/L (24-32); eGFR 86 ML/MIN
[2024-02-14] MEDS: K and/or MAG REPLACEMENT MC SCH (08:00)
[2024-02-14] MEDS: CefTRIAXone/D5W-Rocephin 1gm 50 ML IV SCH (08:27)
[2024-02-14] MEDS: azithromycin/NS 500mg/250ml 250 ML IV SCH (08:28)
[2024-02-14] MEDS: enoxaparin 40mg/0.4ml syringe SUBCUT SCH (08:28)
[2024-02-14] MEDS: methylPREDNISolone sod succ 125mg/2ml vial IV SCH (08:28)
[2024-02-14] MEDS: benzonatate 100mg capsule PO PRN (14:22)
[2024-02-14] MEDS: albuterol 2.5 MG/3 ML nebule NEB SCH (19:45)
[2024-02-14] MEDS: LORazepam 2 mg/ml vial IV PRN (23:22)
[2024-02-15] VITALS (21 sets, daily range): BP systolic 99–112; BP diastolic 52–62; PULSE 72–118; RESP 14–20; TEMP 97.1–97.9; O2SAT 92–96
[2024-02-15 06:00] LABS: PROTHROMBIN TIME 10.2 SECONDS (9.0-12.0)
[2024-02-15 06:08] LABS: BASOPHILS % (AUTO) 0 % (0-1); EOSINOPHILS % (AUTO) 0 % (0-6); HEMATOCRIT 37.7 % (35.0-45.0); HEMOGLOBIN 12.5 g/dl (12.0-16.0); LYMPHOCYTES # (AUTO) 0.7 X10'3 (1.1-4.8); LYMPHOCYTES % (AUTO) 3.9 % (21-51); MEAN CORPUSCULAR HEMOGLOBIN 29.2 PG (27.0-31.0); MEAN CORPUSCULAR HGB CONC 33.2 g/dL (33.0-36.5); MEAN CORPUSCULAR VOLUME 87.8 FL (78-98); MEAN PLATELET VOLUME 9.9 FL (7.4-10.4); MONOCYTES # (AUTO) 0.8 X10'3 (0-0.9); MONOCYTES % (AUTO) 4.4 % (2-12); NEUTROPHILS # (AUTO) 16.6 X10'3 (1.8-7.7); NEUTROPHILS % (AUTO) 91.7 % (42-75); PLATELET COUNT 256 X10'3 (140-440); RED BLOOD COUNT 4.29 X10'6 (4.20-5.60); RED CELL DISTRIBUTION WIDTH 14.5 % (11.5-14.5); WHITE BLOOD COUNT 18.1 X10'3 (4.5-11.0)
[2024-02-15 06:13] LABS: ALBUMIN 2.4 G/DL (3.4-5.0); ANION GAP 6 (8-16); BLOOD UREA NITROGEN 16 MG/DL (7-18); BUN/CREATININE RATIO 20.3 (10.0-20.0); CALCIUM 8.6 MG/DL (8.5-10.1); CHLORIDE 105 MMOL/L (99-107); CREATININE 0.79 MG/DL (0.40-0.90); GLUCOSE 183 MG/DL (70-104); MAGNESIUM 1.9 MG/DL (1.5-2.4); PHOSPHORUS 3.8 MG/DL (2.3-4.5); POTASSIUM 4.1 MMOL/L (3.5-5.1); SODIUM 140 MMOL/L (135-145); TOTAL CARBON DIOXIDE 28.8 MMOL/L (24-32); eCRCL 66 ML/MIN; eGFR 74 ML/MIN
[2024-02-15] MEDS: guaiFENesin ER 600mg tablet PO SCH (12:21)
[2024-02-16] VITALS (18 sets, daily range): BP systolic 113–131; BP diastolic 63–81; PULSE 18–115; RESP 16–22; TEMP 96.7–97.8; O2SAT 92–97
[2024-02-16 07:07] LABS: ALBUMIN 2.4 G/DL (3.4-5.0); ANION GAP 9 (8-16); BLOOD UREA NITROGEN 11 MG/DL (7-18); BUN/CREATININE RATIO 13.8 (10.0-20.0); CALCIUM 8.5 MG/DL (8.5-10.1); CHLORIDE 105 MMOL/L (99-107); GLUCOSE 183 MG/DL (70-104); PHOSPHORUS 3.5 MG/DL (2.3-4.5); POTASSIUM 3.9 MMOL/L (3.5-5.1); SODIUM 140 MMOL/L (135-145); TOTAL CARBON DIOXIDE 26.5 MMOL/L (24-32); eCRCL 65 ML/MIN; eGFR 72 ML/MIN
[2024-02-16 07:10] LABS: PROTHROMBIN TIME 9.9 SECONDS (9.0-12.0)
[2024-02-16 07:20] LABS: INR 0.9 INR
[2024-02-16 07:54] LABS: BASOPHILS % (AUTO) 0.3 % (0-1); EOSINOPHILS % (AUTO) 0 % (0-6); HEMATOCRIT 36.1 % (35.0-45.0); LYMPHOCYTES # (AUTO) 0.9 X10'3 (1.1-4.8); MEAN CORPUSCULAR HEMOGLOBIN 29.2 PG (27.0-31.0); MEAN CORPUSCULAR HGB CONC 33.2 g/dL (33.0-36.5); MONOCYTES % (AUTO) 6.2 % (2-12); NEUTROPHILS # (AUTO) 13.6 X10'3 (1.8-7.7); NEUTROPHILS % (AUTO) 87.5 % (42-75); PLATELET COUNT 238 X10'3 (140-440); RED BLOOD COUNT 4.11 X10'6 (4.20-5.60); RED CELL DISTRIBUTION WIDTH 14.4 % (11.5-14.5); WHITE BLOOD COUNT 15.5 X10'3 (4.5-11.0)
[2024-02-16] MEDS: pneumococcal 23-VAL P-sac vacc 25 mcg/0.5ml vial IMVAC ONE (13:38)
[2024-02-17] VITALS (9 sets, daily range): BP systolic 96–103; BP diastolic 52–70; PULSE 88–132; RESP 8–21; TEMP 97.4–97.5; O2SAT 94–97
[2024-02-17] MEDS: metoprolol tartrate 50mg tablet PO ONE (00:36)
[2024-02-17] MEDS: metoprolol succinate 25mg (24-HOUR) SR. Tablet PO ONE (04:28)
[2024-02-17 05:55] LABS: BASOPHILS % (AUTO) 0.1 % (0-1); EOSINOPHILS % (AUTO) 0 % (0-6); HEMATOCRIT 37.2 % (35.0-45.0); HEMOGLOBIN 12.3 g/dl (12.0-16.0); LYMPHOCYTES # (AUTO) 1.1 X10'3 (1.1-4.8); LYMPHOCYTES % (AUTO) 7.1 % (21-51); MEAN CORPUSCULAR HGB CONC 33.1 g/dL (33.0-36.5); MEAN CORPUSCULAR VOLUME 87.6 FL (78-98); MEAN PLATELET VOLUME 9.9 FL (7.4-10.4); MONOCYTES # (AUTO) 0.9 X10'3 (0-0.9); MONOCYTES % (AUTO) 6.1 % (2-12); NEUTROPHILS # (AUTO) 12.9 X10'3 (1.8-7.7); NEUTROPHILS % (AUTO) 86.7 % (42-75); PLATELET COUNT 242 X10'3 (140-440); RED BLOOD COUNT 4.25 X10'6 (4.20-5.60); RED CELL DISTRIBUTION WIDTH 14.8 % (11.5-14.5); WHITE BLOOD COUNT 14.9 X10'3 (4.5-11.0)
[2024-02-17 06:08] LABS: PROTHROMBIN TIME 10.5 SECONDS (9.0-12.0)
[2024-02-17 06:14] LABS: ALBUMIN 2.2 G/DL (3.4-5.0); ANION GAP 6 (8-16); BLOOD UREA NITROGEN 11 MG/DL (7-18); BUN/CREATININE RATIO 15.7 (10.0-20.0); CALCIUM 8.3 MG/DL (8.5-10.1); CHLORIDE 105 MMOL/L (99-107); GLUCOSE 183 MG/DL (70-104); PHOSPHORUS 3.2 MG/DL (2.3-4.5); SODIUM 140 MMOL/L (135-145); TOTAL CARBON DIOXIDE 28.8 MMOL/L (24-32); eCRCL 74 ML/MIN; eGFR 85 ML/MIN
[2024-02-17] MEDS ORDERED: CEFD300C3 PO (09:15)
[2024-02-17] MEDS ORDERED: PRED10TA23 PO (09:15)
[2024-02-17] MEDS ORDERED: CARCD120C PO (09:15)
[2024-02-17] MEDS: diltiazem CD 120mg capsule (once-daily) PO ONE (11:39)
== END 2024-02-17 14:15 | disposition home or self-care (01) | DRG 177 ==
LOC: ER 13:46 → ED HOLD 21:02 → EDBEDREQ 23:29 → PCU 3S 02-14 00:44
PROVIDERS: ADMIT Surgery; ATTEND Internal Medicine
PROC: B32T1ZZ Computerized Tomography (CT Scan) of Left Pulmonary Artery using Low Osmolar Contrast (ICD-10-PCS; principal; 2024-02-13)
PROC: B3201ZZ Computerized Tomography (CT Scan) of Thoracic Aorta using Low Osmolar Contrast (ICD-10-PCS; 2024-02-13)
PROC: B32S1ZZ Computerized Tomography (CT Scan) of Right Pulmonary Artery using Low Osmolar Contrast (ICD-10-PCS; 2024-02-13)
DX: J69.0 Pneumonitis due to inhalation of food and vomit (principal); J96.21 Acute and chronic respiratory failure with hypoxia; J44.1 Chronic obstructive pulmonary disease with (acute) exacerbation; I48.91 Unspecified atrial fibrillation; F41.9 Anxiety disorder, unspecified; R91.1 Solitary pulmonary nodule; Z88.5 Allergy status to narcotic agent; Z79.899 Other long term (current) drug therapy
CPT/HCPCS: 36415; 71045; 71275; 80048; 80053; 83605; 83735; 83880; 84100; 84132; 84145; 84484; 85025; 85379; 85610; 87081; 90732; 93005; 93306; 94640; 94760; 97110; 97116; 97161; 97530; 99285; A4615; A4620; G0378; J0456; J0696; J1650; J2060; J2919; J7030; Q9967

== ENCOUNTER 2024-03-14 05:47 | Inpatient (IN) | payer BC ==
[~2024-03-14] VITALS: Ht 167.6 cm; Wt 84.1 kg
[2024-03-14] VITALS (10 sets, daily range): BP systolic 92–126; BP diastolic 50–69; PULSE 74–99; RESP 18–22; TEMP 97.2–97.7; O2SAT 92–97
[~2024-03-14 05:47] MED LIST changes: +ALBU18HF2 INH; -ALBU18HF2 PO; +ATR0.5NEB IH; +BUDE10.7 INH; +CARCD120C PO; -CEFD300C3 PO; -GUAI120015 PO; +PRED10TA23 PO
[2024-03-14] MEDS: fentaNYL/PF 50MCG/1 ML 2ML syringe IV ONE (06:20)
[2024-03-14] MEDS: ketorolac trometh 15mg/ml vial 15 MG/ML ML IV ONE (08:02)
[2024-03-14 08:16] LABS: BASOPHILS # (AUTO) 0.3 X10'3 (0-0.2); BASOPHILS % (AUTO) 1.3 % (0-1); EOSINOPHILS % (AUTO) 0.1 % (0-6); HEMATOCRIT 38.2 % (35.0-45.0); HEMOGLOBIN 12.4 g/dl (12.0-16.0); LYMPHOCYTES # (AUTO) 0.6 X10'3 (1.1-4.8); LYMPHOCYTES % (AUTO) 2.6 % (21-51); MEAN CORPUSCULAR HEMOGLOBIN 28.7 PG (27.0-31.0); MEAN CORPUSCULAR HGB CONC 32.5 g/dL (33.0-36.5); MEAN CORPUSCULAR VOLUME 88.5 FL (78-98); MEAN PLATELET VOLUME 9.4 FL (7.4-10.4); MONOCYTES # (AUTO) 1.3 X10'3 (0-0.9); NEUTROPHILS # (AUTO) 19.4 X10'3 (1.8-7.7); PLATELET COUNT 293 X10'3 (140-440); RED BLOOD COUNT 4.31 X10'6 (4.20-5.60); RED CELL DISTRIBUTION WIDTH 14.7 % (11.5-14.5); WHITE BLOOD COUNT 21.5 X10'3 (4.5-11.0)
[2024-03-14 08:35] LABS: D-DIMER 2.16 MG/L FEU (0-0.50)
[2024-03-14 08:56] LABS: ALANINE AMINOTRANSFERASE 13 U/L (12-78); ALBUMIN 2.3 G/DL (3.4-5.0); ALBUMIN/GLOBULIN RATIO 0.5 (1.1-1.5); ALKALINE PHOSPHATASE 104 IU/L (46-116); ANION GAP 7 (8-16); ASPARTATE AMINO TRANSFERASE 24 U/L (10-37); BILIRUBIN,TOTAL 0.8 MG/DL (0.1-1.0); BLOOD UREA NITROGEN 8 MG/DL (7-18); BUN/CREATININE RATIO 10.8 (10.0-20.0); CALCIUM 8.8 MG/DL (8.5-10.1); CHLORIDE 98 MMOL/L (99-107); CREATININE 0.74 MG/DL (0.40-0.90); GLUCOSE 136 MG/DL (70-104); POTASSIUM 4.1 MMOL/L (3.5-5.1); PRO BRAIN NATRIURETIC PEPTIDE 55 PG/ML (0-125); SODIUM 135 MMOL/L (135-145); TOTAL CARBON DIOXIDE 30.3 MMOL/L (24-32); TOTAL PROTEIN 7.3 G/DL (6.4-8.2); eCRCL 73 ML/MIN; eGFR 79 ML/MIN
[2024-03-14] MEDS: ipratropium/albuterol 3ml nebule NEB ONE (09:03)
[2024-03-14] MEDS: cefTAZidime inj 2 GM in normal saline 100ml IV soln 100 ML IV SCH (09:34)
[2024-03-14] MEDS: normal saline 1000ML IV soln IVB ONE (10:00)
[2024-03-14] MEDS ORDERED: magnesium sulf-water 4G/100mL 100 ML IV PRN (10:00)
[2024-03-14] MEDS ORDERED: HYDROcodone/acetaminophen 10/325mg tab PO PRN (10:00)
[2024-03-14] MEDS ORDERED: morphine 2 MG/ML inj. syringe IV PRN ×2 (10:00)
[2024-03-14] MEDS ORDERED: ondansetron/PF 4mg/2ml inj IV PRN (10:00)
[2024-03-14] MEDS ORDERED: acetaminophen 325mg tablet PO PRN ×2 (10:00)
[2024-03-14] MEDS ORDERED: potassium Cl 40MEQ/1/2NS 520ml 520 ML IV PRN (10:00)
[2024-03-14] MEDS ORDERED: HYDROcodone/acetaminophen 5mg/325mg tablet PO PRN (10:00)
[2024-03-14] MEDS ORDERED: magnesium hydroxide 30ml (MOM) UD suspension PO PRN (10:00)
[2024-03-14] MEDS ORDERED: potassium Cl 20 mEq SR tablet PO PRN (10:00)
[2024-03-14] MEDS ORDERED: magnesium sulf-water 2g/50mL 50 ML IV PRN (10:00)
[2024-03-14] MEDS ORDERED: mag hydrox/Alum hydrox/simeth 30ml oral suspension PO PRN (10:00)
[2024-03-14] MEDS: VANCOmycin 1250MG/NS 250ml Bag 250 ML IV SCH (10:56)
[2024-03-14] MEDS: methylPREDNISolone sod succ 125mg/2ml vial IV ONE (12:13)
[2024-03-14] MEDS: ringers solution, lactated 1000ml IV soln IV ONE (12:29)
[2024-03-14] MEDS ORDERED: IPRA3AMP31 NEB (12:55)
[2024-03-14] MEDS ORDERED: CARCD120C PO (12:56)
[2024-03-14] MEDS: ipratropium/albuterol 3ml nebule NEB PRN (12:56)
[2024-03-14] MEDS: piperacillin/tazo 4.5gm/100ml 100 ML IV SCH (16:31)
[2024-03-14] MEDS: normal saline 1000ml 1,000 ML IV SCH (17:16)
[2024-03-14] MEDS: K and/or MAG REPLACEMENT MC SCH (20:00)
[2024-03-14] MEDS: docusate sod 100mg capsule PO SCH (20:00)
[2024-03-14] MEDS: albuterol 2.5 MG/3 ML nebule NEB PRN (20:37)
[2024-03-14] MEDS: enoxaparin 40mg/0.4ml syringe SQ SCH (20:57)
[2024-03-15] VITALS (19 sets, daily range): BP systolic 98–124; BP diastolic 47–82; PULSE 72–104; RESP 14–23; TEMP 97–97.8; O2SAT 88–96
[2024-03-15 05:30] LABS: BASOPHILS # (AUTO) 0.1 X10'3 (0-0.2); BASOPHILS % (AUTO) 0.4 % (0-1); EOSINOPHILS % (AUTO) 0 % (0-6); HEMATOCRIT 34.2 % (35.0-45.0); HEMOGLOBIN 11.1 g/dl (12.0-16.0); LYMPHOCYTES # (AUTO) 0.4 X10'3 (1.1-4.8); MEAN CORPUSCULAR HEMOGLOBIN 28.7 PG (27.0-31.0); MEAN CORPUSCULAR HGB CONC 32.5 g/dL (33.0-36.5); MEAN CORPUSCULAR VOLUME 88.3 FL (78-98); MEAN PLATELET VOLUME 9.5 FL (7.4-10.4); MONOCYTES # (AUTO) 0.5 X10'3 (0-0.9); MONOCYTES % (AUTO) 3.4 % (2-12); NEUTROPHILS # (AUTO) 13.2 X10'3 (1.8-7.7); NEUTROPHILS % (AUTO) 93.2 % (42-75); PLATELET COUNT 262 X10'3 (140-440); RED BLOOD COUNT 3.87 X10'6 (4.20-5.60); RED CELL DISTRIBUTION WIDTH 14.7 % (11.5-14.5); WHITE BLOOD COUNT 14.2 X10'3 (4.5-11.0)
[2024-03-15 05:51] LABS: ANION GAP 5 (8-16); BLOOD UREA NITROGEN 12 MG/DL (7-18); BUN/CREATININE RATIO 18.2 (10.0-20.0); CALCIUM 8.7 MG/DL (8.5-10.1); CHLORIDE 107 MMOL/L (99-107); CREATININE 0.66 MG/DL (0.40-0.90); GLUCOSE 263 MG/DL (70-104); POTASSIUM 3.6 MMOL/L (3.5-5.1); SODIUM 142 MMOL/L (135-145); TOTAL CARBON DIOXIDE 29.7 MMOL/L (24-32); eCRCL 82 ML/MIN; eGFR 90 ML/MIN
[2024-03-15 05:52] LABS: ALANINE AMINOTRANSFERASE 14 U/L (12-78); ALBUMIN 1.8 G/DL (3.4-5.0); ALBUMIN/GLOBULIN RATIO 0.4 (1.1-1.5); ALKALINE PHOSPHATASE 66 IU/L (46-116); ASPARTATE AMINO TRANSFERASE 9 U/L (10-37); BILIRUBIN,TOTAL 0.2 MG/DL (0.1-1.0); TOTAL PROTEIN 6.4 G/DL (6.4-8.2)
[2024-03-15] MEDS: diltiazem CD 120mg capsule (once-daily) PO SCH (08:31)
[2024-03-15] MEDS: ipratropium/albuterol 3ml nebule NEB SCH ×2 (12:00→19:30)
[2024-03-15] MEDS: benzonatate 100mg capsule PO PRN (13:26)
[2024-03-15] MEDS: VANCOmycin 1250MG/NS 250ml Bag 250 ML IV SCH (15:28)
[2024-03-16] VITALS (9 sets, daily range): BP systolic 114–139; BP diastolic 55–65; PULSE 81–104; RESP 16–21; TEMP 98.1–98.7; O2SAT 92–95
[2024-03-16] MEDS: piperacillin/tazo 4.5gm/100ml 100 ML IV SCH (00:57)
[2024-03-16] MEDS: VANCOmycin 1250MG/NS 250ml Bag 250 ML IV SCH (05:26)
[2024-03-16 07:21] LABS: BASOPHILS % (AUTO) 0.1 % (0-1); EOSINOPHILS % (AUTO) 0.1 % (0-6); HEMATOCRIT 34.9 % (35.0-45.0); HEMOGLOBIN 11.4 g/dl (12.0-16.0); LYMPHOCYTES # (AUTO) 1.5 X10'3 (1.1-4.8); LYMPHOCYTES % (AUTO) 8.7 % (21-51); MEAN CORPUSCULAR HEMOGLOBIN 28.8 PG (27.0-31.0); MEAN CORPUSCULAR HGB CONC 32.7 g/dL (33.0-36.5); MEAN CORPUSCULAR VOLUME 88.1 FL (78-98); MEAN PLATELET VOLUME 9.1 FL (7.4-10.4); MONOCYTES # (AUTO) 1.4 X10'3 (0-0.9); MONOCYTES % (AUTO) 8.4 % (2-12); NEUTROPHILS # (AUTO) 14.1 X10'3 (1.8-7.7); NEUTROPHILS % (AUTO) 82.7 % (42-75); PLATELET COUNT 300 X10'3 (140-440); RED BLOOD COUNT 3.97 X10'6 (4.20-5.60); RED CELL DISTRIBUTION WIDTH 14.9 % (11.5-14.5)
[2024-03-16 07:39] LABS: ALANINE AMINOTRANSFERASE 17 U/L (12-78); ALBUMIN 1.8 G/DL (3.4-5.0); ALBUMIN/GLOBULIN RATIO 0.4 (1.1-1.5); ALKALINE PHOSPHATASE 105 IU/L (46-116); ANION GAP 7 (8-16); ASPARTATE AMINO TRANSFERASE 11 U/L (10-37); BILIRUBIN,TOTAL 0.3 MG/DL (0.1-1.0); BLOOD UREA NITROGEN 14 MG/DL (7-18); BUN/CREATININE RATIO 17.7 (10.0-20.0); CALCIUM 8.1 MG/DL (8.5-10.1); CHLORIDE 105 MMOL/L (99-107); CREATININE 0.79 MG/DL (0.40-0.90); GLUCOSE 111 MG/DL (70-104); MAGNESIUM 1.7 MG/DL (1.5-2.4); POTASSIUM 3.4 MMOL/L (3.5-5.1); SODIUM 143 MMOL/L (135-145); TOTAL CARBON DIOXIDE 31.5 MMOL/L (24-32); TOTAL PROTEIN 6.2 G/DL (6.4-8.2); eCRCL 68 ML/MIN; eGFR 74 ML/MIN
[2024-03-16] MEDS: LORazepam 0.5 MG tablet PO PRN (08:29)
[2024-03-16] MEDS: potassium Cl 20 mEq SR tablet PO PRN (08:34)
[2024-03-16] MEDS ORDERED: AMOX-580 PO (12:05)
[2024-03-16] MEDS ORDERED: SACC250C PO (12:05)
[2024-03-16] MEDS ORDERED: POTA-207 PO (12:05)
[2024-03-17] MEDS ORDERED: VANCOMYCIN LEVEL IV ONE (00:30)
== END 2024-03-16 14:34 | disposition home or self-care (01) | DRG 871 ==
LOC: ER 05:48 → ED HOLD 10:05 → PCU 3S 19:30
PROVIDERS: ADMIT Family Medicine; ATTEND Family Medicine
DX: A41.9 Sepsis, unspecified organism (principal); J15.9 Unspecified bacterial pneumonia; I48.20 Chronic atrial fibrillation, unspecified; J44.0 Chronic obstructive pulmonary disease with (acute) lower respiratory infection; J96.10 Chronic respiratory failure, unspecified whether with hypoxia or hypercapnia; E87.6 Hypokalemia; Z80.8 Family history of malignant neoplasm of other organs or systems; Z82.3 Family history of stroke; Z87.891 Personal history of nicotine dependence; Z88.5 Allergy status to narcotic agent; Z79.01 Long term (current) use of anticoagulants
CPT/HCPCS: 36415; 71045; 80053; 83605; 83735; 83880; 84145; 84484; 85025; 85379; 86704; 86705; 86706; 87040; 87081; 87340; 93005; 94640; 94760; 96365; 96375; 97161; 97530; 99285; A6455; G0378; J0713; J1650; J1885; J2543; J2919; J3370; J7030; J7120

== ENCOUNTER 2025-02-13 03:59 | Inpatient (IN) | payer BC ==
[~2025-02-13] VITALS: Ht 165.1 cm; Wt 99.1 kg
[2025-02-13] VITALS (13 sets, daily range): BP systolic 96–112; BP diastolic 59–69; PULSE 11–113; RESP 16–22; TEMP 97.1–98.8; O2SAT 81–99
[~2025-02-13 03:59] MED LIST changes: +AMOX-580 PO; -ATR0.5NEB IH; +IPRA3AMP31 NEB; +POTA-207 PO; -PRED10TA23 PO; +SACC250C PO
--- NOTE | 2025-02-13 04:09 | Physician Documentation ---
History of Present Illness ~ Stated Complaint: SOB M ALS Time Seen by MD: 04:04 Primary Medical Doctor: [facility] Patient presents to the emergency room with chief complaint of shortness of breath. She has been feeling sick this past week with cough symptoms and suddenly got worse tonight. DuoNeb administered by EMS and patient is beginning to feel better. No chest pain Medication Reconciliation Allergies: Coded Allergies: codeine (Verified Allergy, Severe, CAUSED CONVULSIONS, 02/13/25) Scheduled Amox Tr/Potassium Clavulanate 875/125 MG (Augmentin 875/125 MG), 1 TAB PO Q12H Budesonide/Glycopyr/Formoterol (Breztri Aerosphere Inhaler), 2 PUFFS INH Q12H, (Reported) Diltiazem HCl (Dilt-Xr), 1 CAP PO DAILY, (Reported) Potassium Chloride* (K-Dur*), 1 TAB PO DAILY Saccharomyces Boulardii (Florastor), 1 CAP PO Q12H Scheduled PRN Albuterol Sulfate (Ventolin Hfa), 2 PUFFS INH Q4HPRN PRN for wheezing, (Reported ) Ipratropium/Albuterol Sulfate (Duoneb 2.5-0.5 Mg/3 Ml Soln), NEB for SOB or wheezing, (Reported) Past Medical History Past Medical History: Atrial Fibrillation, Asthma, COPD, Pneumonia Past Surgical History: noncontributory Patient History: CVA MOTHER, Name: Amanda (strokes ), Not a twin FH: brain cancer FATHER, Name: Denys ([place]), Not a twin Alcohol Use: None Drug Use: none Lives with: Spouse Lives In: Home Occupation: employed Review of Systems ROS All review of systems negative except as per HPI Physical Exam Physical Exam General: Patient is awake, alert, oriented x4 in moderate distress. Diaphoretic Head: Normocephalic and atraumatic. Eyes: Conjunctival normal. EOMI. PERRL. ENT: Mucous membranes moist. Neck: Supple, trachea is midline. Chest: Significant diffuse wheezing bilaterally. There is no accessory muscle use or retractions. Tachypneic Cardiac: Tachycardic and regular without murmurs, gallops, or rubs. Abd: Soft, nondistended, nontender, with normoactive bowel sounds. No guarding, rebound, or rigidity. Progress Results/Orders Results/Orders Orders - VASQUEZ CAMARGO MD Cont Nebulizer Treatment (02/13/25 04:09) Albuterol 2.5mg/3ml Nebule (Proventil 2. (02/13/25 04:10) Covid19 Binax Poc Result Entry (02/13/25 04:10) Chest,Single View (02/13/25 04:18) Completed Orders - VASQUEZ CAMARGO MD Methylprednisolone Sod Succ (Solumedrol (02/13/25 04:10) Cbc/Diff (02/13/25 04:10) Hs Troponin I W Calculations (02/13/25 04:10) PBNP (02/13/25 04:10) BMP (02/13/25 04:10) Chest,Single View (02/13/25 04:18) Procalcitonin (02/13/25 04:10) Medications Received in ER Medications (Trade) Dose Ordered Sig/[place] Route PRN Reason Start Time Stop Time Status Last Admin Dose Admin (SoluMEDROL 125mg inj) 125 mg ONCE ONCE IV 02/13/25 04:10 02/13/25 04:11 DC 02/13/25 04:19 125 MG (Proventil 2.5 MG/3ML nebule) 5 mg Q1H PRN CONTNEB SOB or wheezing 02/13/25 04:10 02/13/25 05:12 5 MG Vital Signs 02/13/25 02/13/25 02/13/25 02/13/25 04:02 04:11 05:06 05:13 Temp 98.6 Pulse 113 108 91 Resp 20 22 20 18 B/P (MAP) 110/86 104/58 (73) Pulse Ox 98 96 99 O2 Flow Rate 4.0 02/13/25 05:17 O2 Flow Rate 8.0 Laboratory Tests Test 02/13/25 04:15 White Blood Count 12.4 H Red Blood Count 4.81 Hemoglobin 13.5 Hematocrit 40.6 Mean Corpuscular Volume 84.3 Mean Corpuscular Hemoglobin 28.1 Mean Corpuscular Hemoglobin Concent 33.3 Red Cell Distribution Width 14.5 Platelet Count 258 Mean Platelet Volume 9.7 Neutrophils (%) (Auto) 70.1 Lymphocytes (%) (Auto) 18.4 L Monocytes (%) (Auto) 8.9 Eosinophils (%) (Auto) 1.3 Basophils (%) (Auto) 1.3 H Neutrophils # (Auto) 8.7 H Lymphocytes # (Auto) 2.3 Monocytes # (Auto) 1.1 H Eosinophils # (Auto) 0.2 Basophils # (Auto) 0.2 CBC Comment Sodium Level 140 Potassium Level 4.2 Chloride Level 100 Carbon Dioxide Level 32.8 H Anion Gap 7 L Blood Urea Nitrogen 16 Creatinine 0.92 H Estimated GFR/1.73 m2 61 BUN/Creatinine Ratio 17.4 Glucose Level 120 H Calcium Level 8.7 Troponin I High Sensitivity 6 Pro-B-Type Natriuretic Peptide 49 Albumin 3.1 L Procalcitonin < 0.05 Chemistry Comments EKG/XRAY/CT/US/VASC/MRI EKG : Additional Comment EKG interpreted by myself shows time of 0405, rate 108, sinus tachycardia, normal axis, no ST changes Chest X-Ray : Additional Comments Exam: CHEST,SINGLE VIEW CHEST RADIOGRAPH Indication: SEPSIS Technique: Single frontal view of the chest was obtained COMPARISON: DI CHEST,SINGLE VIEW on DOS: 03/16/24, DI CHEST,SINGLE VIEW on DOS: 03/14/24, DI CHEST,SINGLE VIEW on DOS: 02/13/24, DI CHEST,SINGLE VIEW on DOS: 12/16/23, DI CHEST,SINGLE VIEW on DOS: 08/27/23 FINDINGS: Lines and Tubes: None Lungs: Clear Pleura: No effusion. No pneumothorax. Cardiomediastinal contours: Unremarkable Bones: Unremarkable IMPRESSION: 1. No acute disease. Medical Decision Making Findings Patient presented to the emergency room for evaluation of shortness of breath as per HPI. She arrived in severe respiratory distress requiring multiple breathing treatments and re-evaluations. Differentials include but are not limited to CHF exacerbation, COPD exacerbation, COVID, pneumonia, pneumothorax therefore emergent labs and imaging indicated. Patient has made significant improvement with breathing treatments and steroid administration however she continues to have significant symptoms and requires admission. Departure Admitted to Inpatient Unit: yes, to hospitalist Impression: Primary Impression: COPD exacerbation Condition: Guarded Referrals: NO PRIMARY CARE PROVIDER (PCP) Critical Care Note Total Time (mins): 40 Critical Care Note The very real possibility of a deterioration of this patient's condition required the highest level of my preparedness for sudden, emergent intervention. I provided critical care services, which included medication orders, frequent reevaluations of the patient's condition and response to treatment, ordering and reviewing test results, and discussing the case with various consultants. Excludes time spent performing separately billable procedures. The critical care time associated with the care of the patient was 40 minutes not counting p rocedures Signature Scribe Signature: No scribe Attestation: The note accurately reflects work and decisions made by me.Vasquez Camargo MD 02/13/25 06:03 VASQUEZ CAMARGO MD Feb 13, 2025 04:09
[2025-02-13 04:29] LABS: MEAN PLATELET VOLUME 9.7 FL (7.4-10.4); RED CELL DISTRIBUTION WIDTH 14.5 % (11.5-14.5)
--- NOTE | 2025-02-13 04:31 | RADIOLOGY REPORT ---
CHEST RADIOGRAPH Indication: SEPSIS Technique: Single frontal view of the chest was obtained COMPARISON: DI CHEST,SINGLE VIEW on DOS: 03/16/24, DI CHEST,SINGLE VIEW on DOS: 03/14/24, DI CHEST,SING LE VIEW on DOS: 02/13/24, DI CHEST,SINGLE VIEW on DOS: 12/16/23, DI CHEST,SINGLE VIEW on DOS: 08/27/23 FINDINGS: Lines and Tubes: None Lungs: Clear Pleura: No effusion. No pneumothorax. Cardiomediastinal contours: Unremarkable Bones: Unremarkable IMPRESSION: 1. No acute disease.
[2025-02-13 04:49] LABS: CREATININE 0.92 MG/DL (0.40-0.90); PRO BRAIN NATRIURETIC PEPTIDE 49 PG/ML (0-125); TOTAL CARBON DIOXIDE 32.8 MMOL/L (24-32); eCRCL 58 ML/MIN; eGFR 61 ML/MIN
[2025-02-13] MEDS: albuterol 2.5 MG/3 ML nebule CONTNEB PRN (05:12)
[2025-02-13] MEDS: ondansetron/PF 4mg/2ml inj IV ONE (06:11)
--- NOTE | 2025-02-13 06:16 | ELECTROCARDIOGRAPH REPORT ---
[facility] Test Date: 2025-02-13 Test Time: 04:05:34 Pat Name: JASIEL MIJARES Department: EMERGENCY ROOM Room: Gender: F Cylindrical Mixer: FRANCISCA : 1960 Requested By: DEPARTMENT EMERGENCY Order Number: [id number] Reading MD: Measurements Intervals [place] Rate: 108 P: 80 IL: 134 QRS: 57 QRSD: 79 T: 76 QT: 315 QTc: 422 Interpretive Statements Sinus tachycardia Atrial premature complexes Low voltage, precordial leads Please click the below link to view image of tracing.
[2025-02-13] MEDS ORDERED: HYDROcodone/acetaminophen 10/325mg tab PO PRN (08:00)
[2025-02-13] MEDS: docusate sod 100mg capsule PO SCH (08:00)
[2025-02-13] MEDS: K and/or MAG REPLACEMENT MC SCH (08:00)
[2025-02-13] MEDS ORDERED: magnesium hydroxide 30ml (MOM) UD suspension PO PRN (08:00)
[2025-02-13] MEDS ORDERED: potassium Cl 40MEQ/1/2NS 520ml 520 ML IV PRN (08:00)
[2025-02-13] MEDS ORDERED: HYDROcodone/acetaminophen 5mg/325mg tablet PO PRN (08:00)
[2025-02-13] MEDS ORDERED: magnesium sulf-water 2g/50mL 50 ML IV PRN (08:00)
[2025-02-13] MEDS ORDERED: magnesium sulf-water 4G/100mL 100 ML IV PRN (08:00)
[2025-02-13] MEDS ORDERED: mag hydrox/Alum hydrox/simeth 30ml oral suspension PO PRN (08:00)
[2025-02-13] MEDS ORDERED: ondansetron/PF 4mg/2ml inj IV PRN (08:00)
[2025-02-13] MEDS ORDERED: potassium Cl 20 mEq SR tablet PO PRN ×2 (08:00)
[2025-02-13] MEDS: CefTRIAXone/D5W-Rocephin 1gm 50 ML IV SCH (08:44)
[2025-02-13] MEDS: normal saline 1000ml 1,000 ML IV SCH (08:44)
--- NOTE | 2025-02-13 10:11 | HISTORY AND PHYSICAL ---
History & Physical Providers to CC ~ History of Present Illness Reason for Admit\Complaint: COPD exacerbation\AC on CR respiratory failure History of Present Illness This is a 64-year-old female who presents to ED with worsening dyspnea with exertion. The patient has chronic COPD and is on 4 L oxygen at baseline over the past three weeks she has had to increase her portable oxygen to 5 L while grocery shopping however she at this time can not even grocery shop due to her significant shortness of breath. The patient also complains of hot and cold sweats at night does also complain of lower extremity edema for the past couple of weeks patient did have an echocardiogram last hospitalization year ago which demonstrated an LVEF of 75%. The patient has a chest x-ray in the ED which was negative for any acute findings. Allergies: Coded Allergies: codeine (Verified Allergy, Severe, CAUSED CONVULSIONS, 02/13/25) Home Medications Home Medications Active Reported Duoneb 2.5-0.5 Mg/3 Ml Soln (Ipratropium/Albuterol Sulfate) 0.5 Mg-3 Mg (2.5 Mg Base)/3 Ml Ampul.neb NEB PRN Ventolin Hfa (Albuterol Sulfate) 90 Mcg Hfa.aer.ad 2 Puffs INH Q4HPRN PRN Breztri Aerosphere Inhaler (Budesonide/Glycopyr/Formoterol) 160 Mcg-9 Mcg-4.8 Mcg/Actuation Hfa.aer.ad 2 Puffs INH Q12H Past Medical History Past Medical History COPD with chronic respiratory failure on 4 L oxygen at baseline Past Surgical History Surgical History Comment No prior surgeries Family History Family History: CVA MOTHER, Name: Amanda (strokes ), Not a twin FH: brain cancer FATHER, Name: Denys, Not a twin Past Social History Social History Comment Has restarted smoking three cigarettes a day, does not drink alcohol or use illicit drugs. Full code status ROS ROS Except for positives in the HPI the rest of the 14 point review systems is negative Exam Vitals: Vital Signs Date Time Temp Pulse Resp B/P (MAP) Pulse Ox O2 Delivery O2 Flow Rate FiO2 02/13/25 08:13 97 22 112/66 (81) 93 4.0 02/13/25 04:02 98.6 General: Gen. No acute distress alert and oriented 4 Lungs coarse breath sounds scattered in all listening [place] [facility] normal sinus rhythm no murmurs rubs or clicks noted Abdomen soft nontender bowel sounds are normoactive Lower extremities no clubbing cyanosis, nor edema appreciated bilaterally Diagnostic Data Last Recorded Lab Results: 02/13/2541402/13/25414 Counseling Services Smoking & Tobacco Cessation: > 10 Minutes Advance Care Planning Advanced Care plannin - 30 Minutes Problems: (1) COPD exacerbation Status: Resolved Additional Plan # acute worsening of chronic respiratory failure- secondary to acute exacerbation of chronic COPD IV Solu-Medrol DuoNeb scheduled PRN albuterol nebs B.i.d. budesonide neb IV Rocephin P.o. azithromycin Incentive spirometer # leukocytosis- likely secondary to leukemoid reaction Monitor daily CBC # Tobacco use disorder-I spent 12 minutes discussing smoking cessation with the patient including the risk of continuing smoke: Lung cancer, stroke, heart attack, poor wound healing, increased in facial wrinkling, cigarette smoke also leads a foul smell on clothing and fabrics, risk of MRSA skin infections. The expense of smoking cigarettes and how cigarettes have been scientifically engineered to be as addictive as humanly possible. The patient has accepted a 21 mg nicotine patch. # anxiety The patient requested lorazepam for sleep which she had received 0.5 mg during the hospitalization as needed PRN lorazepam 0.5 mg every 6 hours. # DVT prophylaxis SCDs SQ Lovenox I spent a total of 17 minutes on reviewing various resuscitative measures/ ACP with the patient at the time of admission. The patient has decided on full code status Date of Service: Feb 13, 2025 Billing Provider: KRISTIAN ROWELL DO Common Visit Codes: [id number] INP/OBS CARE (HIGH) Secondary Visit Codes: 96824-[id number] CHNG SMOKING >10MIN, [id number] CARE PLAN 30 MINUTES KRISTIAN ROWELL DO Feb 13, 2025 10:11
[2025-02-13] MEDS: ipratropium/albuterol 3ml nebule NEB SCH (10:18)
[2025-02-13] MEDS: budesonide 0.5mg/2ml UD nebule IH SCH (10:18)
[2025-02-13] MEDS: nicotine 21mg patch - 24 hr TD ONE (10:54)
[2025-02-13] MEDS ORDERED: BUPR150T8 PO (11:31)
[2025-02-13] MEDS: enoxaparin 40mg/0.4ml syringe SQ SCH (19:18)
[2025-02-14] VITALS (18 sets, daily range): BP systolic 98–141; BP diastolic 59–89; PULSE 62–132; RESP 13–22; TEMP 97.4–99.1; O2SAT 90–96
[2025-02-14] MEDS: albuterol 2.5 MG/3 ML nebule NEB PRN (03:55)
[2025-02-14 06:38] LABS: MEAN PLATELET VOLUME 9.6 FL (7.4-10.4); RED CELL DISTRIBUTION WIDTH 14.1 % (11.5-14.5)
[2025-02-14 06:45] LABS: CREATININE 0.73 MG/DL (0.40-0.90); TOTAL CARBON DIOXIDE 32.4 MMOL/L (24-32); eCRCL 70 ML/MIN; eGFR 80 ML/MIN
[2025-02-14] MEDS: nicotine 21mg patch - 24 hr TD SCH (08:29)
--- NOTE | 2025-02-14 21:13 | PROGRESS NOTE ---
Daily Progress Note Providers to CC ~ Antibiotic Timeout Antibiotic Ordered?: Yes Subjective The patient states her breathing his slightly improved, the patient is in his sinus tachycardia when I was evaluating her heart rate in the 110s to 120s however now in the 120s to 140s thus I did start the patient on metoprolol tartrate Objective Vital Signs Date Time Temp Pulse Resp B/P (MAP) Pulse Ox O2 Delivery O2 Flow Rate FiO2 02/14/25 19:37 122 22 Nasal Cannula 4.0 02/14/25 19:23 92 36 02/14/25 15:00 98.0 128/64 (85) Result Diagram: 02/14/25 0607 02/14/25 0607 Gen. Mild respiratory distress alert and oriented 4 Lungs coarse breath sounds in all listening [place] [facility] tachycardic no murmurs rubs or clicks noted Abdomen soft nontender bowel sounds are normoactive Lower extremities no clubbing cyanosis, nor edema appreciated bilaterally Problem\Assessment\Plan Problems/Diagnosis: (1) COPD exacerbation # acute worsening of chronic respiratory failure- secondary to acute exacerbation of chronic COPD IV Solu-Medrol DuoNeb scheduled PRN albuterol nebs B.i.d. budesonide neb IV Rocephin P.o. azithromycin Incentive spirometer # leukocytosis- likely secondary to leukemoid reaction Monitor daily CBC Resolved # sinus tachycardia Possibly secondary to nebulizer treatments The patient's heart rate now is in the 120s to 140s thus I will start metoprolol tartrate 50 mg now on 50 mg b.i.d. # Tobacco use disorder-I spent 12 minutes discussing smoking cessation with the patient including the risk of continuing smoke: Lung cancer, stroke, heart attack, poor wound healing, increased in facial wrinkling, cigarette smoke also leads a foul smell on clothing and fabrics, risk of MRSA skin infections. The expense of smoking cigarettes and how cigarettes have been scientifically engineered to be as addictive as humanly possible. The patient has accepted a 21 mg nicotine patch. # anxiety The patient requested lorazepam for sleep which she had received 0.5 mg during the hospitalization as needed PRN lorazepam 0.5 mg every 6 hours. # DVT prophylaxis SCDs SQ Lovenox Date of Service: Feb 14, 2025 Billing Provider: KRISTIAN ROWELL DO Common Visit Codes: [id number] INP/OBS CARE(HIGH) KRISTIAN ROWELL DO Feb 14, 2025 21:13
[2025-02-15] VITALS (17 sets, daily range): BP systolic 105–129; BP diastolic 64–73; PULSE 70–108; RESP 15–20; TEMP 97.1–97.8; O2SAT 92–97
[2025-02-15 05:51] LABS: MEAN PLATELET VOLUME 10.0 FL (7.4-10.4); RED CELL DISTRIBUTION WIDTH 14.5 % (11.5-14.5)
[2025-02-15 06:29] LABS: CREATININE 0.70 MG/DL (0.40-0.90); TOTAL CARBON DIOXIDE 30.8 MMOL/L (24-32); eCRCL 73 ML/MIN; eGFR 84 ML/MIN
[2025-02-15] MEDS: ipratropium/albuterol 3ml nebule NEB SCH (15:43)
--- NOTE | 2025-02-15 19:05 | PROGRESS NOTE ---
Daily Progress Note Providers to CC ~ Antibiotic Timeout Antibiotic Ordered?: Yes Subjective The patient states she is not breathing as well today and is having a lot of chest discomfort when coughing. The patient is on 4 L oxygen currently which is at her baseline however she does sound titer on exam and I changed her DuoNeb to a DuoNeb with MetaNeb. Objective Vital Signs Date Time Temp Pulse Resp B/P (MAP) Pulse Ox O2 Delivery O2 Flow Rate FiO2 02/15/25 15:55 86 20 Nasal Cannula 4.0 02/15/25 15:48 97 36 02/15/25 11:00 97.8 120/66 (84) Result Diagram: 02/15/25 0505 02/15/25 0505 Gen. Mild respiratory distress alert and oriented 4 Lungs coarse breath sounds in all listening [place] [facility] tachycardic no murmurs rubs or clicks noted Abdomen soft nontender bowel sounds are normoactive Lower extremities no clubbing cyanosis, nor edema appreciated bilaterally Problem\Assessment\Plan Problems/Diagnosis: (1) COPD exacerbation # acute worsening of chronic respiratory failure- secondary to acute exacerbation of chronic COPD IV Solu-Medrol DuoNeb scheduled PRN albuterol nebs B.i.d. budesonide neb IV Rocephin P.o. azithromycin Incentive spirometer 02/15 the patient is sounded titer today and states that she is having more difficulty breathing- changed DuoNeb to DuoNeb with MetaNeb # leukocytosis- likely secondary to leukemoid reaction Monitor daily CBC Resolved # sinus tachycardia Possibly secondary to nebulizer treatments The patient's heart rate now is in the 120s to 140s thus I will start metoprolol tartrate 50 mg now on 50 mg b.i.d. 02/15 no longer in his sinus tachycardia continue metoprolol # Tobacco use disorder-I spent 12 minutes discussing smoking cessation with the patient including the risk of continuing smoke: Lung cancer, stroke, heart attack, poor wound healing, increased in facial wrinkling, cigarette smoke also leads a foul smell on clothing and fabrics, risk of MRSA skin infections. The expense of smoking cigarettes and how cigarettes have been scientifically engineered to be as addictive as humanly possible. The patient has accepted a 21 mg nicotine patch. # anxiety The patient requested lorazepam for sleep which she had received 0.5 mg during the hospitalization as needed PRN lorazepam 0.5 mg every 6 hours. # DVT prophylaxis SCDs SQ Lovenox Date of Service: Feb 15, 2025 Billing Provider: KRISTIAN ROWELL DO Common Visit Codes: [id number] INP/OBS CARE(HIGH) KRISTIAN ROWELL DO Feb 15, 2025 19:05
[2025-02-16] VITALS (21 sets, daily range): BP systolic 104–115; BP diastolic 63–71; PULSE 75–114; RESP 16–23; TEMP 97–98.1; O2SAT 93–97
[2025-02-16 06:51] LABS: MEAN PLATELET VOLUME 10.0 FL (7.4-10.4); RED CELL DISTRIBUTION WIDTH 14.6 % (11.5-14.5)
[2025-02-16 07:10] LABS: CREATININE 0.84 MG/DL (0.40-0.90); TOTAL CARBON DIOXIDE 34.1 MMOL/L (24-32); eCRCL 61 ML/MIN; eGFR 68 ML/MIN
--- NOTE | 2025-02-16 15:11 | PROGRESS NOTE ---
Daily Progress Note Providers to CC ~ Antibiotic Timeout Antibiotic Ordered?: Yes Subjective Chief complaint very short of breath still and a state of panic When I listened with the patient's lungs and advised her that her lungs sound clear she became very upset and stated that just because she sounds good does not mean she feels good. Review of systems negative for all 10 systems reviewed Objective Vital Signs Date Time Temp Pulse Resp B/P (MAP) Pulse Ox O2 Delivery O2 Flow Rate FiO2 02/16/25 11:09 86 18 Nasal Cannula 4.0 02/16/25 11:04 95 36 02/16/25 11:00 98.0 113/66 (82) Result Diagram: 02/16/25 0550 02/16/25 0550 Gen. Mild respiratory distress alert and oriented 4 HEENT normocephalic nontraumatic head CVS regular rate rhythm no murmurs gallops or rubs Respiratory system is clear to auscultate bilaterally no rales rhonchi crackles or wheezing Abdomen soft nontender bowel sounds are normoactive Lower extremities no clubbing cyanosis, nor edema appreciated bilaterally Problem\Assessment\Plan Problems/Diagnosis: (1) COPD exacerbation # acute worsening of chronic respiratory failure- secondary to acute exacerbation of chronic COPD IV Solu-Medrol DuoNeb scheduled PRN albuterol nebs B.i.d. budesonide neb IV Rocephin P.o. azithromycin Incentive spirometer Maybe patient needs an influenza test but we do not have that in the hospital COVID has been requested # leukocytosis- likely secondary to leukemoid reaction Monitor daily CBC Resolved # sinus tachycardia Possibly secondary to nebulizer treatments The patient's heart rate now is in the 120s to 140s thus I will start metoprolol tartrate 50 mg now on 50 mg b.i.d. 02/15 no longer in his sinus tachycardia continue metoprolol # Tobacco use disorder-. The patient has accepted a 21 mg nicotine patch. # anxiety The patient requested lorazepam for sleep which she had received 0.5 mg during the hospitalization as needed PRN lorazepam 0.5 mg every 6 hours. # DVT prophylaxis SCDs SQ Lovenox Plan DC home in a.m. Date of Service: Feb 16, 2025 Billing Provider: ALMA RUSSO MD Common Visit Codes: [id number] INP/OBS CARE(HIGH) ALMA RUSSO MD Feb 16, 2025 15:11
[2025-02-17] VITALS (9 sets, daily range): BP systolic 108–154; BP diastolic 61–76; PULSE 72–106; RESP 14–22; TEMP 97.5–98.2; O2SAT 95–99
[2025-02-17 05:42] LABS: MEAN PLATELET VOLUME 9.9 FL (7.4-10.4); RED CELL DISTRIBUTION WIDTH 14.6 % (11.5-14.5)
[2025-02-17 05:58] LABS: CREATININE 0.89 MG/DL (0.40-0.90); TOTAL CARBON DIOXIDE 35.7 MMOL/L (24-32); eCRCL 57 ML/MIN; eGFR 64 ML/MIN
--- NOTE | 2025-02-17 13:24 | DISCHARGE SUMMARY ---
Discharge Summary Providers to CC ~ Discharge Summary Admission Diagnosis: ac/ cr resp failure- afib rvr Hospital Course DATE OF ADMISSION: 02/13/2025 DATE OF DISCHARGE: 02/17/2025 Discharge Diagnosis\Comment: COPD exacerbation obesity Operations\Procedures: None Consultants: None Complications: None Condition on DC: Stable New Medications: Prednisone (Prednisone) 10 Mg Tablet 0 PO DAILY, #42 TAB Take 4 tabs daily x4 days, then 3 daily x4 days 2 daily x4 days 1 daily x4 days 1/2 daily x4 days then STOP Azithromycin (Zithromax) Y Tablet 500 MG PO DAILY for 5 Days, #5 TAB Metoprolol Tartrate (Metoprolol Tartrate) 50 Mg Tablet 50 MG PO BID for 30 Days, #60 TAB Nicotine 21 MG Patch* (Habitrol 21 MG Patch*) 1 Each Patch.td24 1 PATCH TD DAILY for 5 Days, #5 PATCH Continued Medications: Albuterol Sulfate (Ventolin Hfa) 90 Mcg Hfa.aer.ad 2 PUFFS INH Q4HPRN PRN for wheezing, GM 0 Refills Budesonide/Glycopyr/Formoterol (Breztri Aerosphere Inhaler) 160 Mcg-9 Mcg-4.8 Mcg/Actuation Hfa.aer.ad 2 PUFFS INH Q12H, GM 0 Refills Bupropion Hcl SR* (Wellbutrin SR*) 150 Mg Tablet.sa 1 TAB PO DAILY, TAB LOOK-ALIKE SOUND-ALIKE DRUG buSPIRone & buPROPion Ipratropium/Albuterol Sulfate (Duoneb 2.5-0.5 Mg/3 Ml Soln) 0.5 Mg-3 Mg (2.5 Mg Base)/3 Ml Ampul.neb NEB PRN for SOB or wheezing Discharge Summary: History of Present Illness This is a 64-year-old female who presents to ED with worsening dyspnea with ex ertion. The patient has chronic COPD and is on 4 L oxygen at baseline over the past three weeks she has had to increase her portable oxygen to 5 L while grocery shopping however she at this time can not even grocery shop due to her significant shortness of breath. The patient also complains of hot and cold sweats at night does also complain of lower extremity edema for the past couple of weeks patient did have an echocardiogram last hospitalization year ago which demonstrated an LVEF of 75%. The patient has a chest x-ray in the ED which was negative for any acute findings. Hospital course patient is a 64-year-old admitted for COPD exacerbation patient is started on IV Solu-Medrol and nebulizer treatments she continued to improve she has home O2 that she uses 247. She is back to her baseline and discharged back home with advice for close follow up with PCP in one week. *Problems/Diagnosis: (1) COPD exacerbation Status: Resolved Total Time Spent on D/C: > 30 Minutes Date of Service: Feb 17, 2025 Billing Provider: ALMA RUSSO MD Common Visit Codes: [id number] DISCH DAY >30min ALMA RUSSO MD Feb 17, 2025 13:24
[2025-02-17] MEDS ORDERED: METO50TA16 PO (13:27)
[2025-02-17] MEDS ORDERED: AZI25OT PO (13:27)
[2025-02-17] MEDS ORDERED: NICO-687 TD (13:27)
[2025-02-17] MEDS ORDERED: PRED10TA23 PO (13:27)
== END 2025-02-17 15:44 | disposition home or self-care (01) | DRG 189 ==
LOC: ER 03:59 → ED HOLD 08:03 → PCU 3S 11:18
PROVIDERS: ADMIT Family Medicine; ATTEND Family Medicine
DX: J96.20 Acute and chronic respiratory failure, unspecified whether with hypoxia or hypercapnia (principal); J44.1 Chronic obstructive pulmonary disease with (acute) exacerbation; I48.91 Unspecified atrial fibrillation; F17.210 Nicotine dependence, cigarettes, uncomplicated; F41.9 Anxiety disorder, unspecified; R00.0 Tachycardia, unspecified; Z20.822 Contact with and (suspected) exposure to COVID-19; E66.89 Other obesity not elsewhere classified; Z68.36 Body mass index [BMI] 36.0-36.9, adult; D72.823 Leukemoid reaction; Z86.73 Personal history of transient ischemic attack (TIA), and cerebral infarction without residual deficits; Z88.5 Allergy status to narcotic agent; Z79.899 Other long term (current) drug therapy
CPT/HCPCS: 36415; 71045; 80048; 80053; 83735; 83880; 84145; 84484; 85025; 87081; 87811; 93005; 94640; 94760; 99291; A4620; A6250; A6258; A7015; G0378; J0696; J1650; J2405; J2919; J7030

== ENCOUNTER 2025-03-18 12:26 | Outpatient (CLI) | payer BC ==
[~2025-03-18 12:26] MED LIST changes: -AMOX-580 PO; +AZI25OT PO; +BUPR150T8 PO; -CARCD120C PO; +METO50TA16 PO; +NICO-687 TD; -POTA-207 PO; +PRED10TA23 PO; -SACC250C PO
--- NOTE | 2025-03-18 18:31 | RADIOLOGY REPORT ---
EXAM: CT CT CHEST ION INDICATION: LOCALIZED SWELLING, MASS AND LUMP, TRUNK TECHNIQUE: Noncontrast axial images of the chest have been obtained along with coronal and sagittal reformatted images. All CT scans at this facility use dose modulation, iterative reconstruction, and/or weight based dosing when appropriate to reduce radiation dose to as low as reasonably achievable. COMPARISON: CT CTA CHEST PE on DOS: 02/13/24 FINDINGS: LOWER NECK: Unremarkable LYMPH NODES/MEDIASTINUM: No abnormal lymph nodes by CT size criteria CARDIOVASCULAR: Normal cardiac size. No pericardial effusion. No aneurysmal dilatation of the great vessels. No significant coronary artery calcifications. UPPER ABDOMEN: Exophytic cysts of the superior pole left kidney measuring 4.8 cm. MUSCULOSKELETAL: No acute fracture or aggressive focal osseous lesion. Multilevel degenerative change of the visualized spine. 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 CHEST WALL: Unremarkable. LUNG PARENCHYMA/PLEURAL SPACE: No pleural effusion or pneumothorax. Moderate to severe centrilobular emphysema. Diffusely distributed peribronchial thickening area of pleural-parenchymal scarring with associated cystic lung change in the left upper lobe. Small amount layering tracheal secretions. IMPRESSION: 1. No CT evidence of an acute intrathoracic process. Diffuse peribronchial thickening likely related to chronic bronchitis. Correlate for chronic obstructive pulmonary disease 2. Moderate to severe centrilobular emphysema. 3. Small amount of layering tracheal secretions. 4. 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
== END 2025-03-18 23:59 | disposition home or self-care (01) ==
LOC: RAD 12:26
PROVIDERS: ATTEND Internal Medicine Critical Care Medicine
DX: J43.2 Centrilobular emphysema (principal); J98.4 Other disorders of lung; R22.2 Localized swelling, mass and lump, trunk; N28.1 Cyst of kidney, acquired; M87.822 Other osteonecrosis, left humerus
CPT/HCPCS: 71250